=== PATIENT | male | born 1950 ===

== ENCOUNTER 2017-08-24 11:34 | Inpatient (IN) | payer BC ==
[~2017-08-24 11:34] MED LIST: Lidocaine 1%/Sod Bicarbonate in NS 8.4% 1 ML Syringe IV ONE; Morphine 8 MG, EPINEPHrine 0.3 MG, Cefuroxime 750 MG, Ketorolac 30 MG, Sodium Chloride ... ONE; Sodium Chloride 0.9% 10 ML Syringe FLUSH PRN
[2017-08-24] MEDS: Lactated Ringers 1,000 ML IV SCH ×2 (11:45→18:40)
[2017-08-24] MEDS ORDERED: Triamcinolone Acetonide 40 MG/ML 1 ML MDV ONE (12:08)
[2017-08-24] MEDS ORDERED: ceFAZolin 1 GM Vial ONE ×2 (12:08→13:21)
[2017-08-24] MEDS ORDERED: Iodine/Sodium Iodide 2% Tincture 30 ML Bottle ONE (12:08)
[2017-08-24] MEDS ORDERED: Vancomycin 1 GM SDV ONE (12:08)
[2017-08-24] MEDS ORDERED: Bupivacaine 0.25% 30 ML SDV ONE ×2 (12:08→12:19)
[2017-08-24] MEDS ORDERED: Morphine 8 MG, EPINEPHrine 0.3 MG, Cefuroxime 750 MG, Ketorolac 30 MG, Sodium Chloride ... ONE ×5 (12:30)
--- NOTE | 2017-08-24 12:48 | PCM.PREANE ---
Preanesthetic Assessment - Procedure Proposed Procedure: R TKR with l;eft knee cortisone injection - Anesthesia/Transfusion/Family Hx Anesthesia History: No Prior Anesthesia Family History of Anesthesia Reaction: No Transfusion History: No Prior Transfusion(s) - Review of Systems General: No Symptoms Pulmonary: No Symptoms Cardiovascular: Other (HTN, HLD) Gastrointestinal: No Symptoms Neurological: No Symptoms Other: Reports: None - Physical Assessment NPO Status Date: 08/23/17 NPO Status Time: 19:00 O2 Sat by Pulse Oximetry: 99 Respiratory Rate: 16 Vital Signs: Last Vital Signs Temp 37.0 C 08/24/17 11:35 Pulse 62 08/24/17 11:35 Resp 16 08/24/17 11:35 BP 176/95 H 08/24/17 11:35 Pulse Ox 99 08/24/17 11:35 Height: 1.77 m Weight: 81.193 kg ASA Class: 2 Mental Status: Alert & Oriented x3 Airway Class: Mallampati = 3 Dentition: Reports: Normal Dentition Thyro-Mental Finger Breadths: 3 Mouth Opening Finger Breadths: 3 ROM/Head Extension: Full Lungs: Clear to Auscultation, Normal Respiratory Effort Cardiovascular: Regular Rate, Regular Rhythm - Allergies Allergies/Adverse Reactions: Allergies Allergy/AdvReac Type Severity Reaction Status Date / Time No Known Allergies Allergy Verified 08/23/17 15:00 - Blood Blood Available: No Product(s) Available: None - Anesthesia Plan Pre-Op Medication Ordered: None - Acknowledgements Anesthesia Type Planned: Spinal (with duramorph ) Pt an Appropriate Candidate for the Planned Anesthesia: Yes Alternatives and Risks of Anesthesia Discussed w Pt/Guardian: Yes Pt/Guardian Understands and Agrees with Anesthesia Plan: Yes PreAnesthesia Questionnaire HEENT History: Reports: Sinusitis, Other (See Below) Other HEENT History: wears glasses Cardiovascular History: Reports: High Cholesterol, Hypertension Respiratory History: Reports: None Gastrointestinal History: Reports: None Genitourinary History: Reports: None MEDICINE AIDE History: Reports: None Musculoskeletal History: Reports: Arthritis, Osteoarthritis, Other (See Below) Other Musculoskeletal History: bilateral knee pain, intercostal muscle pain, olecranon bursitis Neurological History: Reports: None Psychiatric History: Reports: None Endocrine/Metabolic History: Reports: None Hematologic History: Reports: None Immunologic History: Reports: None Oncologic (Cancer) History: Reports: None Dermatologic History: Reports: None - Past Surgical History Head Surgeries/Procedures: Reports: None HEENT Surgical History: Reports: Cataract Surgery Cardiovascular Surgical History: Reports: None Respiratory Surgical History: Reports: None GI Surgical History: Reports: None Female Surgical History: Reports: None Endocrine Surgical History: Reports: None Neurological Surgical History: Reports: None Oncologic Surgical History: Reports: None Dermatological Surgical History: Reports: None - SUBSTANCE USE Smoking Status *Q: Never Smoker Tobacco Use Within Last Twelve Months: Snuff/Dip Second Hand Smoke Exposure: No Days Per Week of Alcohol Use: 3 Number of Drinks Per Day: 1 Total Drinks Per Week: 3 Recreational Drug Use History: No - HOME MEDS Home Medications: Home Meds Rosuvastatin [Crestor] 10 mg PO DAILY 05/25/16 [History] Lisinopril 20 mg PO DAILY 08/23/17 [History] - CURRENT (IN HOUSE) MEDS Current Meds: Current Medications Lactated Ringer's (Ringers, Lactated) 1,000 mls @ 125 mls/hr IV ASDIRECTED OMAR Last Admin: 08/24/17 11:45 Dose: 125 mls/hr Sodium Chloride (Saline Flush) 10 ml FLUSH ASDIRECTED PRN PRN Reason: Keep Vein Open Discontinued Medications Bupivacaine HCl (Marcaine 0.25%) Confirm Administered Dose 30 ml .ROUTE .STK- MED ONE Stop: 08/24/17 12:09 Bupivacaine HCl (Marcaine 0.25%) Confirm Administered Dose 30 ml .ROUTE .STK- MED ONE Stop: 08/24/17 12:20 Cefazolin Sodium (Ancef) Confirm Administered Dose 2 gm .ROUTE .STK-MED ONE Stop: 08/24/17 12:09 Morphine Sulfate 8 mg/Epinephrine HCl 0.3 mg/Cefuroxime Sodium 750 mg/Ketorolac Tromethamine 30 mg/Sodium Chloride 27.9 ml 0 mg .XX ONETIME ONE Stop: 08/24/17 07:33 Morphine Sulfate 8 mg/Epinephrine HCl 0.3 mg/Cefuroxime Sodium 750 mg/Ketorolac Tromethamine 30 mg/Sodium Chloride 27.9 ml 0 mg .XX ONETIME ONE Stop: 08/24/17 12:31 Iodine (Iodine 2% Mild Tincture) Confirm Administered Dose 30 ml .ROUTE .STK- MED ONE Stop: 08/24/17 12:09 Lidocaine/Sodium Bicarbonate (Buffered Lidocaine 1% In Ns 8.4%) 0.25 ml IV ONETIME ONE Stop: 08/24/17 10:57 Last Admin: 08/24/17 11:44 Dose: 0.25 ml Midazolam HCl (Versed 1 Mg/Ml) Confirm Administered Dose 2 mg .ROUTE .STK-MED ONE Stop: 08/24/17 12:52 Morphine Sulfate (Duramorph Pf) Confirm Administered Dose 10 mg .ROUTE .STK-MED ONE Stop: 08/24/17 12:52 Propofol (Diprivan 20 Ml) Confirm Administered Dose 600 mg .ROUTE .STK-MED ONE Stop: 08/24/17 12:51 Tranexamic Acid (Cyklokapron) Confirm Administered Dose 1,000 mg .ROUTE .STK- MED ONE Stop: 08/24/17 12:09 Triamcinolone Acetonide (Kenalog-40) Confirm Administered Dose 80 mg .ROUTE .STK -MED ONE Stop: 08/24/17 12:09 Vancomycin HCl (Vancomycin) Confirm Administered Dose 1 gm .ROUTE .STK-MED ONE Stop: 08/24/17 12:09
[2017-08-24] MEDS ORDERED: Propofol 200 MG/20 ML SDV ONE ×5 (12:50→14:54)
[2017-08-24] MEDS ORDERED: Midazolam 1 MG/ML 2 ML SDV ONE (12:51)
[2017-08-24] MEDS ORDERED: Morphine PF 10 MG/10 ML SDV ONE (12:51)
[2017-08-24] MEDS ORDERED: Magnesium Hydroxide 400 MG/5 ML Susp 30 ML Cup PO PRN (13:06)
[2017-08-24] MEDS ORDERED: diphenhydrAMINE 50 MG/ML SDV IVPUSH PRN ×2 (13:06→14:08)
[2017-08-24] MEDS ORDERED: Morphine 2 MG/ML Syringe IVPUSH PRN (13:06)
[2017-08-24] MEDS ORDERED: Sennosides 8.6 MG Tab PO PRN (13:06)
[2017-08-24] MEDS ORDERED: Naloxone 0.4 MG/ML SDV IVPUSH PRN (13:06)
[2017-08-24] MEDS ORDERED: Ondansetron 4 MG/2 ML SDV IVPUSH PRN ×2 (13:06→14:08)
[2017-08-24] MEDS ORDERED: Bisacodyl 5 MG Tab PO PRN (13:06)
[2017-08-24] MEDS ORDERED: fentaNYL 100 MCG/2 ML SDV ONE (14:08)
[2017-08-24] MEDS ORDERED: Meperidine PF 50 MG/ML Syringe IVPUSH PRN (14:08)
--- NOTE | 2017-08-24 14:10 | PCM.CONS ---
H&P History of Present Illness - General Date of Service: 08/24/17 Admit Problem/Dx: Admission Diagnosis/Problem Admission Diagnosis/Problem Osteoarthritis of knee Source of Information: Patient, Old Records, Provider, RN Notes Reviewed History Limitations: Reports: Physical Impairment - History of Present Illness Initial Comments - Free Text/Narative: This is a 66-year-old, white male, with past medical history of HTN and HLD who underwent right total knee arthroplasty with left knee cortisone injection post operative day zero. Patient is doing relatively well. He is currently hypertensive. His pain is controlled. He denies any acute issues. Hospital Medicine was consulted for postoperative care. - Related Data Allergies/Adverse Reactions: Allergies Allergy/AdvReac Type Severity Reaction Status Date / Time No Known Allergies Allergy Verified 08/24/17 12:43 Home Medications: Home Meds Rosuvastatin [Crestor] 10 mg PO DAILY 05/25/16 [History] Lisinopril 20 mg PO DAILY 08/23/17 [History] Acetaminophen [Tylenol Extra Strength] 1,000 mg PO Q6HR PRN 08/24/17 [History] Past Medical History HEENT History: Reports: Sinusitis, Other (See Below) Other HEENT History: wears glasses Cardiovascular History: Reports: High Cholesterol, Hypertension Respiratory History: Reports: None Gastrointestinal History: Reports: None Genitourinary History: Reports: None STEPDOWN NURSE History: Reports: None Musculoskeletal History: Reports: Arthritis, Osteoarthritis, Other (See Below) Other Musculoskeletal History: bilateral knee pain, intercostal muscle pain, olecranon bursitis Neurological History: Reports: None Psychiatric History: Reports: None Endocrine/Metabolic History: Reports: None Hematologic History: Reports: None Immunologic History: Reports: None Oncologic (Cancer) History: Reports: None Dermatologic History: Reports: None - Past Surgical History Head Surgeries/Procedures: Reports: None HEENT Surgical History: Reports: Cataract Surgery Cardiovascular Surgical History: Reports: None Respiratory Surgical History: Reports: None GI Surgical History: Reports: None Female Surgical History: Reports: None Endocrine Surgical History: Reports: None Neurological Surgical History: Reports: None Oncologic Surgical History: Reports: None Dermatological Surgical History: Reports: None Social & Family History - Tobacco Use Smoking Status *Q: Never Smoker Years of Tobacco use: 10 Packs/Tins Daily: 0.1 Second Hand Smoke Exposure: No - Caffeine Use Caffeine Use: Reports: Coffee - Alcohol Use Days Per Week of Alcohol Use: 3 Number of Drinks Per Day: 1 Total Drinks Per Week: 3 - Recreational Drug Use Recreational Drug Use: No - Living Situation & Occupation Living situation: Reports: Occupation: Employed H&P Review of Systems - Review of Systems: Review Of Systems: See Below Exam - Exam Exam: See Below - Vital Signs Vital Signs: Last Vital Signs Temp 37.0 C 08/24/17 12:36 Pulse 62 08/24/17 12:36 Resp 16 08/24/17 12:48 BP 176/95 H 08/24/17 12:36 Pulse Ox 99 08/24/17 12:48 Weight: 81.193 kg - Exam General: Alert, Oriented, Cooperative. No: Mild Distress HEENT: Conjunctiva Clear, EACs Clear, Hearing Intact, Mucosa Moist & [place], Nares Patent, Normal Nasal Septum, Pupils Equal, Pupils Reactive Neck: Supple, Trachea Midline, Full Range of Motion. No: JVD Lungs: Clear to Auscultation, Normal Respiratory Effort Cardiovascular: Regular Rate, Regular Rhythm GI/Abdominal Exam: Normal Bowel Sounds, Soft, Non-Tender, No Organomegaly (Male) Exam: Other (indwelling dugan catheter) Rectal (Males) Exam: Deferred Back Exam: Normal Inspection Extremities: Normal Inspection, Normal Range of Motion, Non-Tender, Normal Capillary Refill Peripheral Pulses: 2+: Dorsalis Pedis (L), Dorsalis Pedis (R) Skin: Warm, Dry, Intact Neuro Extensive - Mental Status: Oriented x3, Normal Cognition, Memory Intact Neuro Extensive - Motor, Sensory, Reflexes: CN II-XII Intact (limited but grossly intact), Abnormal Gait Psychiatric: Alert, Normal Affect, Normal Mood Consult PN Assessment/Plan POD#: 0 Procedures: Procedures ASSAY GLUCOSE BLOOD QUANT (08/14/15) ASSAY OF PREALBUMIN (07/10/17) ASSAY OF SERUM ALBUMIN (07/10/17) CHEST X-RAY 2VW FRONTAL&LATL (07/10/17) COMPREHEN METABOLIC PANEL (08/18/16) DXA BONE DENSITY AXIAL (07/15/17) EMERGENCY DEPT VISIT (05/25/16) GLYCOSYLATED HEMOGLOBIN TEST (07/10/17) LIPID PANEL (08/20/16) METABOLIC PANEL TOTAL CA (07/10/17) MR-STAPH DNA AMP PROBE (07/08/17) PROTHROMBIN TIME (07/10/17) THROMBOPLASTIN TIME PARTIAL (07/10/17) X-RAY EXAM KNEE 4 OR MORE (04/20/17) X-RAY EXAM OF SHOULDER (05/25/16) Problem List Initiated/Reviewed/Updated: Yes Plan: Acute: Post-Operative Care State - He is hypertensive - Continue to monitor for hemodynamic instability S/p Right Total Knee Arthroplasty with Left Knee Steroid Injection - Stable - DVT and Pain Management as per primary team Hx/o B/L Chronic Knee Pain - Pain Management as per primary team Post-Operative HTN - Last BP was 165/120 mmHg - Saline lock and Bumex 0.5 mg IVP and HCTZ 12.5 mg po x1 now - PRN anti-hypertensive drug Chronic: HTN HLD Plan: He is clinically stable Routine AM labs Continue home meds PT/OT consult IS q2 awake Thank you for the opportunity to participate in the management of this patient. Requesting Provider: Dr. Rodriguez Date Consult Requested: 08/24/17 Reason for Consult: Post-Operative Care Patient History Reviewed: Yes Admission H&P Reviewed: Yes Consult Result/Summary: Stable
[2017-08-24] MEDS ORDERED: Lactated Ringers 1,000 ML ONE (14:35)
[2017-08-24] MEDS ORDERED: ePHEDrine 50 MG/ML SDV ONE (14:56)
[2017-08-24] MEDS ORDERED: Ketorolac 15 MG/ML SDV IVPUSH PRN (15:27)
[2017-08-24] MEDS ORDERED: Ondansetron 4 MG/2 ML SDV ONE (15:31)
--- NOTE | 2017-08-24 15:32 | PCM.POSTAN ---
POST ANESTHESIA ASSESSMENT - MENTAL STATUS Mental Status: Alert, Oriented - VITAL SIGNS Pulse Rate: 88 SaO2: 100 Resp Rate: 16 Blood Pressure: 123/75 Temperature: 36.2 C - RESPIRATORY Respiratory Status: Respiratory Rate WNL, Airway Patent, O2 Saturation Stable, Supplemental Oxygen - CARDIOVASCULAR CV Status: Pulse Rate WNL, Blood Pressure Stable - GASTROINTESTINAL GI Status: No Symptoms - PAIN Pain Score: 0 - POST OP HYDRATION Hydration Status: Adequate & Stable
--- NOTE | 2017-08-24 16:00 | CR ---
Right knee: 2 views of the right knee were obtained. Comparison: Previous right knee exam of 04/20/17. Recently placed right knee prosthesis is seen. Air noted within the soft tissues and within the joint which is compatible with surgical change. Underlying bony structures are intact. Prosthesis components are aligned. Impression: 1. Satisfactory radiographic appearance of recently placed right knee prosthesis. Diagnostic code #2
[2017-08-24] MEDS: Acetaminophen/oxyCODONE 325-5 MG Tab PO PRN (19:22)
[2017-08-24] MEDS: ceFAZolin 2 GM in Premix Bag 1 BAG IV SCH (20:55)
[2017-08-24] MEDS: Docusate Sodium 100 MG Cap PO SCH (20:58)
[2017-08-24] MEDS: Famotidine 20 MG Tab PO SCH (20:58)
--- NOTE | 2017-08-24 21:41 | PCM.OPNOTE ---
- General Post-Op/Procedure Note Date of Surgery/Procedure: 08/24/17 Operative Procedure(s): right total knee arthroplasty with left corticosteroid injection Pre Op Diagnosis: right knee osteoarthrosis, left knee osteoarthrosis Post-Op Diagnosis: Same Anesthesia Technique: Local, MAC, Spinal Primary Surgeon: Alan Rodriguez Anesthesia Provider: Lopez Sandra Tire Manager: Ericka Hdz Tire Manager: Lawanda Shaw EBL in mLs: 100 Complications: None Condition: Good Free Text/Narrative:: Intake & Output 08/24/17 08/24/17 08/24/17 06:59 14:59 22:59 Intake Total 640 Output Total 400 Balance 240
[2017-08-24] MEDS ORDERED: hydrALAZINE 20 MG/ML SDV IVPUSH PRN (21:43)
[2017-08-24] MEDS ORDERED: Metoprolol Tartrate 5 MG/5 ML SDV IVPUSH PRN (21:43)
[2017-08-24] MEDS ORDERED: Bumetanide 1 MG/4 ML MDV IVPUSH ONE (21:43)
[2017-08-24] MEDS ORDERED: Hydrochlorothiazide 25 MG Tab PO ONE ×2 (21:45)
--- NOTE | 2017-08-24 22:35 | OR ---
DATE OF OPERATION: 08/24/2017 SURGEON: Alan Rodriguez MD OPERATION PERFORMED: 1. Right total knee arthroplasty. 2. Left knee corticosteroid injection. PREOPERATIVE DIAGNOSIS: Bilateral knee osteoarthrosis. POSTOPERATIVE DIAGNOSIS: Bilateral knee osteoarthrosis. ANESTHESIA: Local MAC with spinal. ANESTHESIA PROVIDER: Lopez Sandra. ACUPRESSURE THERAPIST: 1. Ericka Hdz PA-C. 2. Lawanda Shaw LPN. ESTIMATED BLOOD LOSS: 500 mL. COMPLICATIONS: None. CONDITION: Stable. IMPLANT: 1. Brad size 6 PS femur. 2. Brad size 6 universal tibial baseplate. 3. Brad size 6, 11 mm PS X3 polyethylene. 4. [place] 32 x 10 mm asymmetric patella. DESCRIPTION OF PROCEDURE: The patient was identified in the preop holding area. Proper site was marked and identified by the surgeon. The patient was taken back to the operating theater. After adequate anesthesia, the patient's right lower extremity had a nonsterile tourniquet applied and it was then sterilely prepped and draped in the usual sterile fashion. OR timeout was performed. The patient received 2 g IV Ancef. At this time, right lower extremity was exsanguinated. Tourniquet was insufflated to 300 mmHg. Standard medial parapatellar incision was made. Medial parapatellar arthrotomy was created. Deep fibers of the MCL were raised and anterior fat pad was resected. At this time, attention was turned to the patella. Patella measured 24, it was resected to a 14 for a 32 x 10 mm patella. Drill holes were then drilled and found to be in adequate position. The drill was then drilled in the distal femur and the intramedullary distal femoral cutting guide was then placed. The patient was noted to have a large defect in the lateral femoral condyle which was well circumscribed and roughly a depth of 8 mm. 10 mm was resected off the distal femur. Sizing guide was placed. It was found to be a size 6 PS femur that was shown on the implant record at the beginning of this dictation. The drill holes were drilled for the epicondylar axis using [place] line and epicondyles as reference. At this time, the 4-in- 1 cutting block was placed. An anterior posterior and anterior and posterior chamfer cuts were then completed. The correct size box cut was then placed and the box cut was completed and found to be an adequate resection. Attention was turned to the tibia. The posterior medial lateral retractors were placed. The extramedullary tibial guide was placed. It was placed in the old footprint of the ACL. It was aligned with the center of the ankle and 0 degrees of slope, 9 mm was then resected off the unaffected lateral side. There was found to be an acceptable reduction. At this time, posterior osteophytes were removed along with medial and lateral meniscus. A trial implant was placed with a correct sized tibia that was mentioned at the beginning of the dictation. An 11 mm PS X3 polyethylene was then placed. The patient's knee was brought through range of motion. The patella was tracking centrally and was stable to varus and valgus stress. Alignment was found to be roughly at 0 degrees. At this time, cement was mixed on the back table. The tibia was stamped and drilled in proper rotation. All cut surfaces were irrigated with pulse lavage irrigation with Ancef and then completely dried. Once this was completed, then the cement was ready. The universal tibial base plate was cemented in place. Next, the size 6 PS femur cemented into place and the 11 mm trial spacer was placed and then an 11 mm PS X3 polyethylene was placed. The patient's knee was brought into full extension. Excess cement was removed. The patella was then cemented in place at this time. Tourniquet was deflated. One liter dilute Betadine solution was irrigated through the knee along with 3 L of pulse lavage irrigation with Ancef. Periarticular injection was then completed. The patient's knee was brought through a range of motion. Once the cement had time to set up and it was found to be stable to varus valgus stress, the patella was tracking centrally with full range of motion. At this time, a #2 barbed suture was used for closure of the medial parapatellar arthrotomy. Topical tranexamic acid was placed. 2-0 Vicryl was used subcutaneously, a running 3-0 Monocryl was used subcuticularly. The patient tolerated the procedure well and was sent to the PACU in stable condition. After the procedure, the patient underwent left knee corticosteroid injection under sterile, 2 mL of 40 mg Kenalog and 4 mL of 0.25% Marcaine were injected to the left knee. The patient tolerated that as well. MMODAL /[id number]
[2017-08-25] MEDS: Acetaminophen/oxyCODONE 325-5 MG Tab PO PRN ×3 (01:49→12:36)
[2017-08-25] MEDS: ceFAZolin 2 GM in Premix Bag 1 BAG IV SCH ×2 (05:27→12:36)
[2017-08-25] MEDS: Cyclobenzaprine 10 MG Tab PO PRN ×2 (07:23→14:17)
[2017-08-25] MEDS: Famotidine 20 MG Tab PO SCH (08:47)
[2017-08-25] MEDS: Docusate Sodium 100 MG Cap PO SCH (08:47)
[2017-08-25] MEDS ORDERED: Rosuvastatin 10 MG Tab PO SCH (09:00)
[2017-08-25] MEDS ORDERED: Lisinopril 10 MG Tab PO ONE (09:00)
[2017-08-25] MEDS ORDERED: Aspirin 325 MG Tab.EC PO SCH (09:00)
[2017-08-25] MEDS ORDERED: Lisinopril 20 MG Tab PO SCH (09:00)
--- NOTE | 2017-08-25 11:17 | PCM.CONSN ---
- General Info Date of Service: 08/25/17 Admission Dx/Problem (Free Text): Admission Diagnosis/Problem Admission Diagnosis/Problem Osteoarthritis of knee Functional Status: Reports: Pain Controlled, Tolerating Diet, Ambulating, Urinating, Incentive Spirometry. Denies: New Symptoms - Review of Systems General: Reports: No Symptoms. Denies: Fever HEENT: Reports: No Symptoms Pulmonary: Reports: No Symptoms. Denies: Shortness of Breath, Cough Cardiovascular: Reports: No Symptoms. Denies: Chest Pain, Palpitations, Dyspnea on Exertion Gastrointestinal: Reports: No Symptoms. Denies: Abdominal Pain, Constipation, Diarrhea, Vomiting Genitourinary: Reports: No Symptoms Musculoskeletal: Reports: Leg Pain (Right knee at surgical site.) Skin: Reports: No Symptoms Neurological: Reports: No Symptoms Psychiatric: Reports: No Symptoms Systems Review Comment:: Patient reports that he is doing well. He has no new complaints. He feels he is ready to go home. - Patient Data Vitals - Most Recent: Last Vital Signs Temp 98.2 F 08/25/17 07:40 Pulse 96 08/25/17 07:40 Resp 16 08/25/17 07:40 BP 126/80 08/25/17 08:47 Pulse Ox 95 08/25/17 10:35 Weight - Most Recent: 189 lb 8 oz I&O - Last 24 Hours: Intake & Output 08/24/17 08/25/17 08/25/17 22:59 06:59 14:59 Intake Total 640 925 240 Output Total 400 550 Balance 240 375 240 Lab Results Last 24 Hours: Laboratory Results - last 24 hr 08/24/17 08/25/17 08/25/17 Range/Units 22:07 05:51 05:51 WBC 8.48 (4.23-9.07) K/mm3 RBC 4.64 (4.63-6.08) M/mm3 Hgb 14.3 (13.7-17.5) gm/L Hct 41.0 (40.1-51.0) % MCV 88.4 (79.0-92.2) fl MCH 30.8 (25.7-32.2) pg MCHC 34.9 (32.2-35.5) g/dl RDW Std Deviation 39.8 (35.1-43.9) fL Plt Count 241 (163-337) K/mm3 MPV 9.7 (9.4-12.3) fl Sodium 132 L (136-145) mEq/L Potassium 4.2 (3.5-5.1) mEq/L Chloride 97 L (98-107) mEq/L Carbon Dioxide 24 (21-32) mEq/L Anion Gap 15.2 H (5-15) BUN 18 (7-18) mg/dL Creatinine 1.1 (0.7-1.3) mg/dL Est Cr Clr Drug Dosing 67.84 mL/min Estimated GFR (MDRD) > 60 (>60) mL/min BUN/Creatinine Ratio 16.4 (14-18) Glucose 181 H (80-115) mg/dL POC Glucose 168 H (80-115) mg/dL Calcium 8.7 (8.5-10.1) mg/dL Total Bilirubin 0.8 (0.2-1.0) mg/dL AST 21 (15-37) U/L ALT 28 (16-63) U/L Alkaline Phosphatase 56 (46-116) U/L Total Protein 7.3 (6.4-8.2) g/dl Albumin 3.3 L (3.4-5.0) g/dl Globulin 4.0 gm/dL Albumin/Globulin Ratio 0.8 L (1-2) Med Orders - Current: Current Medications Aspirin (Ecotrin) 325 mg PO BID [facility] Last Admin: 08/25/17 08:47 Dose: 325 mg Bisacodyl (Dulcolax) 5 mg PO DAILY PRN PRN Reason: Constipation Cyclobenzaprine HCl (Flexeril) 10 mg PO TID PRN PRN Reason: Spasms Last Admin: 08/25/17 07:23 Dose: 10 mg Docusate Sodium (Colace) 100 mg PO BID [facility] Last Admin: 08/25/17 08:47 Dose: 100 mg Famotidine (Pepcid) 20 mg PO Q12H [facility] Last Admin: 08/25/17 08:47 Dose: 20 mg Hydralazine HCl (Apresoline) 20 mg IVPUSH Q4H PRN PRN Reason: Hypertension Cefazolin Sodium/Dextrose 2 gm (/ Premix) 50 mls @ 100 mls/hr IV Q8H [facility] Stop: 08/25/17 13:59 Last Admin: 08/25/17 05:27 Dose: 100 mls/hr Ketorolac Tromethamine (Toradol) 15 mg IVPUSH Q6H PRN PRN Reason: Pain Last Admin: 08/25/17 05:30 Dose: 15 mg Lisinopril (Prinivil) 20 mg PO DAILY [facility] Last Admin: 08/25/17 08:47 Dose: 20 mg Magnesium Hydroxide (Milk Of Magnesia) 30 ml PO BID PRN PRN Reason: Constipation Metoprolol Tartrate (Lopressor) 5 mg IVPUSH Q4H PRN PRN Reason: Tachycardia Morphine Sulfate (Morphine) 2 mg IVPUSH Q2H PRN PRN Reason: Breakthrough Pain Naloxone HCl (Narcan) 0.1 mg IVPUSH Q5M PRN PRN Reason: Oversedation Ondansetron HCl (Zofran) 4 mg IVPUSH Q6H PRN PRN Reason: Nausea/Vomiting Oxycodone/Acetaminophen (Percocet 325-5 Mg) 1 - 2 tab PO Q4H PRN PRN Reason: Pain Last Admin: 08/25/17 08:47 Dose: 2 tab Rosuvastatin Calcium (Crestor) 10 mg PO DAILY [facility] Last Admin: 08/25/17 08:47 Dose: 10 mg Senna (Senna) 8.6 mg PO BID PRN PRN Reason: Constipation Sodium Chloride (Saline Flush) 10 ml FLUSH ASDIRECTED PRN PRN Reason: Keep Vein Open Discontinued Medications Bumetanide (Bumex) 0.5 mg IVPUSH ONETIME ONE Stop: 08/24/17 21:44 Last Admin: 08/24/17 22:36 Dose: 0.5 mg Bupivacaine HCl (Marcaine 0.25%) Confirm Administered Dose 30 ml .ROUTE .STK- MED ONE Stop: 08/24/17 12:09 Last Admin: 08/24/17 14:33 Dose: 27 ml Bupivacaine HCl (Marcaine 0.25%) Confirm Administered Dose 30 ml .ROUTE .STK- MED ONE Stop: 08/24/17 12:20 Last Admin: 08/24/17 15:10 Dose: 4 ml Cefazolin Sodium (Ancef) Confirm Administered Dose 2 gm .ROUTE .STK-MED ONE Stop: 08/24/17 12:09 Last Admin: 08/24/17 14:29 Dose: 2 gm Cefazolin Sodium (Ancef) Confirm Administered Dose 2 gm .ROUTE .STK-MED ONE Stop: 08/24/17 13:22 Morphine Sulfate 8 mg/Epinephrine HCl 0.3 mg/Cefuroxime Sodium 750 mg/Ketorolac Tromethamine 30 mg/Sodium Chloride 27.9 ml 0 mg .XX ONETIME ONE Stop: 08/24/17 07:33 Morphine Sulfate 8 mg/Epinephrine HCl 0.3 mg/Cefuroxime Sodium 750 mg/Ketorolac Tromethamine 30 mg/Sodium Chloride 27.9 ml 0 mg .XX ONETIME ONE Stop: 08/24/17 12:31 Last Admin: 08/24/17 14:32 Dose: 788.3 mg Diphenhydramine HCl (Benadryl) 25 mg IVPUSH Q4H PRN PRN Reason: Nausea Diphenhydramine HCl (Benadryl) 25 mg IVPUSH Q6H PRN PRN Reason: Pruritis Stop: 08/24/17 23:00 Ephedrine Sulfate (Ephedrine Sulfate) Confirm Administered Dose 50 mg .ROUTE .STK-MED ONE Stop: 08/24/17 14:57 Fentanyl (Sublimaze) Confirm Administered Dose 100 mcg .ROUTE .STK-MED ONE Stop: 08/24/17 14:09 Hydrochlorothiazide (Hydrochlorothiazide) 25 mg PO ONETIME ONE Stop: 08/24/17 21:46 Last Admin: 08/24/17 22:30 Dose: Not Given Hydrochlorothiazide (Hydrochlorothiazide) 12.5 mg PO ONETIME ONE Stop: 08/24/17 21:46 Last Admin: 08/24/17 22:35 Dose: 12.5 mg Lactated Ringer's (Ringers, Lactated) 1,000 mls @ 125 mls/hr IV ASDIRECTED [facility] Last Admin: 08/24/17 18:40 Dose: 125 mls/hr Lactated Ringer's (Ringers, Lactated) Confirm Administered Dose 1,000 mls @ as directed .ROUTE .STK-MED ONE Stop: 08/24/17 14:36 Iodine (Iodine 2% Mild Tincture) Confirm Administered Dose 30 ml .ROUTE .STK- MED ONE Stop: 08/24/17 12:09 Last Admin: 08/24/17 14:25 Dose: 18 ml Lidocaine/Sodium Bicarbonate (Buffered Lidocaine 1% In Ns 8.4%) 0.25 ml IV ONETIME ONE Stop: 08/24/17 10:57 Last Admin: 08/24/17 11:44 Dose: 0.25 ml Lisinopril (Prinivil) 10 mg PO ONETIME ONE Stop: 08/25/17 09:01 Last Admin: 08/25/17 08:46 Dose: 10 mg Meperidine HCl (Demerol) 12.5 mg IVPUSH ONETIME PRN PRN Reason: Shivering Stop: 08/24/17 23:00 Midazolam HCl (Versed 1 Mg/Ml) Confirm Administered Dose 2 mg .ROUTE .STK-MED ONE Stop: 08/24/17 12:52 Morphine Sulfate (Duramorph Pf) Confirm Administered Dose 10 mg .ROUTE .STK-MED ONE Stop: 08/24/17 12:52 Ondansetron HCl (Zofran) 4 mg IVPUSH ONETIME PRN PRN Reason: Nausea/Vomiting Stop: 08/24/17 23:00 Ondansetron HCl (Zofran) Confirm Administered Dose 4 mg .ROUTE .STK-MED ONE Stop: 08/24/17 15:32 Propofol (Diprivan 20 Ml) Confirm Administered Dose 600 mg .ROUTE .STK-MED ONE Stop: 08/24/17 12:51 Propofol (Diprivan 20 Ml) Confirm Administered Dose 200 mg .ROUTE .STK-MED ONE Stop: 08/24/17 14:05 Propofol (Diprivan 20 Ml) Confirm Administered Dose 200 mg .ROUTE .STK-MED ONE Stop: 08/24/17 14:06 Propofol (Diprivan 20 Ml) Confirm Administered Dose 200 mg .ROUTE .STK-MED ONE Stop: 08/24/17 14:37 Propofol (Diprivan 20 Ml) Confirm Administered Dose 200 mg .ROUTE .STK-MED ONE Stop: 08/24/17 14:55 Tranexamic Acid (Cyklokapron) Confirm Administered Dose 1,000 mg .ROUTE .STK- MED ONE Stop: 08/24/17 12:09 Last Admin: 08/24/17 14:43 Dose: 1,000 mg Triamcinolone Acetonide (Kenalog-40) Confirm Administered Dose 80 mg .ROUTE .STK -MED ONE Stop: 08/24/17 12:09 Last Admin: 08/24/17 15:10 Dose: 80 mg Vancomycin HCl (Vancomycin) Confirm Administered Dose 1 gm .ROUTE .[place]-MED ONE Stop: 08/24/17 12:09 Last Admin: 08/24/17 14:44 Dose: 1 gm - Exam Quality Assessment: DVT Prophylaxis General: Alert, Oriented, Cooperative HEENT: Pupils Equal, Pupils Reactive, Mucous Membr. Moist/[place] Neck: Supple, Trachea Midline, No JVD Lungs: Clear to Auscultation, Normal Respiratory Effort Cardiovascular: Regular Rate, Regular Rhythm GI/Abdominal Exam: Normal Bowel Sounds, Soft, Non-Tender, No Organomegaly, No Distention, No Mass (Male) Exam: Deferred Back Exam: Normal Inspection, Full Range of Motion Extremities: Leg Pain (left knee at surgical site, controlled. ), Limited Range of Motion. No: Pedal Edema Peripheral Pulses: 2+: Radial (L), Radial (R), Posterior Tibial (L), Posterior Tibial (R), Dorsalis Pedis (L), Dorsalis Pedis (R) Skin: Warm, Dry, Intact Wound/Incisions: Dressing Dry and Intact, No Drainage Neurological: Normal Speech, Normal Tone, Sensation Intact. No: Normal Gait Psy/Mental Status: Alert, Normal Affect, Normal Mood Consult PN Assessment/Plan POD#: 1 Procedures: Procedures ASSAY GLUCOSE BLOOD QUANT (08/14/15) ASSAY OF PREALBUMIN (07/10/17) ASSAY OF SERUM ALBUMIN (07/10/17) CHEST X-RAY 2VW FRONTAL&LATL (07/10/17) COMPREHEN METABOLIC PANEL (08/18/16) DXA BONE DENSITY AXIAL (07/15/17) EMERGENCY DEPT VISIT (05/25/16) GLYCOSYLATED HEMOGLOBIN TEST (07/10/17) LIPID PANEL (08/20/16) METABOLIC PANEL TOTAL CA (07/10/17) MR-STAPH DNA AMP PROBE (07/08/17) PROTHROMBIN TIME (07/10/17) THROMBOPLASTIN TIME PARTIAL (07/10/17) X-RAY EXAM KNEE 4 OR MORE (04/20/17) X-RAY EXAM OF SHOULDER (05/25/16) (1) Status post right knee replacement SNOMED Code(s): 991721438, 625089025, 749750905 Code(s): Z96.651 - PRESENCE OF RIGHT ARTIFICIAL KNEE JOINT Priority: High Current Visit: Yes Problem List Initiated/Reviewed/Updated: Yes Plan: Acute: Post-Operative Care State - He is hypertensive - Continue to monitor for hemodynamic instability S/p Right Total Knee Arthroplasty with Left Knee Steroid Injection - Stable - DVT and Pain Management as per primary team Hx/o B/L Chronic Knee Pain - Pain Management as per primary team Post-Operative HTN - AM BP was 144/89 - 10mg Lisinopril given this AM - Follow-up with PCP for monitoring/medication adjustment of hypertension - PRN anti-hypertensive drug Chronic: HTN HLD Plan: He is clinically stable Routine AM labs Continue home meds PT/OT consult IS q2 awake Plan on discharge today. Thank you for the opportunity to participate in the management of this patient. From a hospitalist standpoint this patient is clear for discharge. Thank you!
[2017-08-25 12:36] VITALS: BP 104/62
--- NOTE | 2017-08-25 13:07 | PCM.SURGPN ---
- General Info Date of Service: 08/25/17 POD#: 1 Functional Status: Reports: Pain Controlled, Tolerating Diet, Ambulating, Urinating, Incentive Spirometry - Review of Systems Musculoskeletal: Reports: Other (The pt met inpatient therapy goals. He reports less discomfort at left knee today s/p injection.) - Patient Data Vitals - Most Recent: Last Vital Signs Temp 98.4 F 08/25/17 12:26 Pulse 94 08/25/17 12:26 Resp 14 08/25/17 12:26 BP 104/62 08/25/17 12:26 Pulse Ox 96 08/25/17 12:26 Weight - Most Recent: 189 lb 8 oz I&O - Last 24 Hours: Intake & Output 08/24/17 08/25/17 08/25/17 22:59 06:59 14:59 Intake Total 640 925 240 Output Total 400 550 Balance 240 375 240 Lab Results Last 24 Hrs: Laboratory Results - last 24 hr 08/24/17 08/25/17 08/25/17 Range/Units 22:07 05:51 05:51 WBC 8.48 (4.23-9.07) K/mm3 RBC 4.64 (4.63-6.08) M/mm3 Hgb 14.3 (13.7-17.5) gm/L Hct 41.0 (40.1-51.0) % MCV 88.4 (79.0-92.2) fl MCH 30.8 (25.7-32.2) pg MCHC 34.9 (32.2-35.5) g/dl RDW Std Deviation 39.8 (35.1-43.9) fL Plt Count 241 (163-337) K/mm3 MPV 9.7 (9.4-12.3) fl Sodium 132 L (136-145) mEq/L Potassium 4.2 (3.5-5.1) mEq/L Chloride 97 L (98-107) mEq/L Carbon Dioxide 24 (21-32) mEq/L Anion Gap 15.2 H (5-15) BUN 18 (7-18) mg/dL Creatinine 1.1 (0.7-1.3) mg/dL Est Cr Clr Drug Dosing 67.84 mL/min Estimated GFR (MDRD) > 60 (>60) mL/min BUN/Creatinine Ratio 16.4 (14-18) Glucose 181 H (80-115) mg/dL POC Glucose 168 H (80-115) mg/dL Calcium 8.7 (8.5-10.1) mg/dL Total Bilirubin 0.8 (0.2-1.0) mg/dL AST 21 (15-37) U/L ALT 28 (16-63) U/L Alkaline Phosphatase 56 (46-116) U/L Total Protein 7.3 (6.4-8.2) g/dl Albumin 3.3 L (3.4-5.0) g/dl Globulin 4.0 gm/dL Albumin/Globulin Ratio 0.8 L (1-2) Med Orders - Current: Current Medications Aspirin (Ecotrin) 325 mg PO BID [facility] Last Admin: 08/25/17 08:47 Dose: 325 mg Bisacodyl (Dulcolax) 5 mg PO DAILY PRN PRN Reason: Constipation Cyclobenzaprine HCl (Flexeril) 10 mg PO TID PRN PRN Reason: Spasms Last Admin: 08/25/17 07:23 Dose: 10 mg Docusate Sodium (Colace) 100 mg PO BID [facility] Last Admin: 08/25/17 08:47 Dose: 100 mg Famotidine (Pepcid) 20 mg PO Q12H [facility] Last Admin: 08/25/17 08:47 Dose: 20 mg Hydralazine HCl (Apresoline) 20 mg IVPUSH Q4H PRN PRN Reason: Hypertension Cefazolin Sodium/Dextrose 2 gm (/ Premix) 50 mls @ 100 mls/hr IV Q8H [facility] Stop: 08/25/17 13:59 Last Admin: 08/25/17 12:36 Dose: 100 mls/hr Ketorolac Tromethamine (Toradol) 15 mg IVPUSH Q6H PRN PRN Reason: Pain Last Admin: 08/25/17 05:30 Dose: 15 mg Lisinopril (Prinivil) 20 mg PO DAILY [facility] Last Admin: 08/25/17 08:47 Dose: 20 mg Magnesium Hydroxide (Milk Of Magnesia) 30 ml PO BID PRN PRN Reason: Constipation Metoprolol Tartrate (Lopressor) 5 mg IVPUSH Q4H PRN PRN Reason: Tachycardia Morphine Sulfate (Morphine) 2 mg IVPUSH Q2H PRN PRN Reason: Breakthrough Pain Naloxone HCl (Narcan) 0.1 mg IVPUSH Q5M PRN PRN Reason: Oversedation Ondansetron HCl (Zofran) 4 mg IVPUSH Q6H PRN PRN Reason: Nausea/Vomiting Oxycodone/Acetaminophen (Percocet 325-5 Mg) 1 - 2 tab PO Q4H PRN PRN Reason: Pain Last Admin: 08/25/17 12:36 Dose: 2 tab Rosuvastatin Calcium (Crestor) 10 mg PO DAILY [facility] Last Admin: 08/25/17 08:47 Dose: 10 mg Senna (Senna) 8.6 mg PO BID PRN PRN Reason: Constipation Sodium Chloride (Saline Flush) 10 ml FLUSH ASDIRECTED PRN PRN Reason: Keep Vein Open Discontinued Medications Bumetanide (Bumex) 0.5 mg IVPUSH ONETIME ONE Stop: 08/24/17 21:44 Last Admin: 08/24/17 22:36 Dose: 0.5 mg Bupivacaine HCl (Marcaine 0.25%) Confirm Administered Dose 30 ml .ROUTE .STK- MED ONE Stop: 08/24/17 12:09 Last Admin: 08/24/17 14:33 Dose: 27 ml Bupivacaine HCl (Marcaine 0.25%) Confirm Administered Dose 30 ml .ROUTE .STK- MED ONE Stop: 08/24/17 12:20 Last Admin: 08/24/17 15:10 Dose: 4 ml Cefazolin Sodium (Ancef) Confirm Administered Dose 2 gm .ROUTE .STK-MED ONE Stop: 08/24/17 12:09 Last Admin: 08/24/17 14:29 Dose: 2 gm Cefazolin Sodium (Ancef) Confirm Administered Dose 2 gm .ROUTE .STK-MED ONE Stop: 08/24/17 13:22 Morphine Sulfate 8 mg/Epinephrine HCl 0.3 mg/Cefuroxime Sodium 750 mg/Ketorolac Tromethamine 30 mg/Sodium Chloride 27.9 ml 0 mg .XX ONETIME ONE Stop: 08/24/17 07:33 Morphine Sulfate 8 mg/Epinephrine HCl 0.3 mg/Cefuroxime Sodium 750 mg/Ketorolac Tromethamine 30 mg/Sodium Chloride 27.9 ml 0 mg .XX ONETIME ONE Stop: 08/24/17 12:31 Last Admin: 08/24/17 14:32 Dose: 788.3 mg Diphenhydramine HCl (Benadryl) 25 mg IVPUSH Q4H PRN PRN Reason: Nausea Diphenhydramine HCl (Benadryl) 25 mg IVPUSH Q6H PRN PRN Reason: Pruritis Stop: 08/24/17 23:00 Ephedrine Sulfate (Ephedrine Sulfate) Confirm Administered Dose 50 mg .ROUTE .STK-MED ONE Stop: 08/24/17 14:57 Fentanyl (Sublimaze) Confirm Administered Dose 100 mcg .ROUTE .STK-MED ONE Stop: 08/24/17 14:09 Hydrochlorothiazide (Hydrochlorothiazide) 25 mg PO ONETIME ONE Stop: 08/24/17 21:46 Last Admin: 08/24/17 22:30 Dose: Not Given Hydrochlorothiazide (Hydrochlorothiazide) 12.5 mg PO ONETIME ONE Stop: 08/24/17 21:46 Last Admin: 08/24/17 22:35 Dose: 12.5 mg Lactated Ringer's (Ringers, Lactated) 1,000 mls @ 125 mls/hr IV ASDIRECTED OMAR Last Admin: 08/24/17 18:40 Dose: 125 mls/hr Lactated Ringer's (Ringers, Lactated) Confirm Administered Dose 1,000 mls @ as directed .ROUTE .STK-MED ONE Stop: 08/24/17 14:36 Iodine (Iodine 2% Mild Tincture) Confirm Administered Dose 30 ml .ROUTE .STK- MED ONE Stop: 08/24/17 12:09 Last Admin: 08/24/17 14:25 Dose: 18 ml Lidocaine/Sodium Bicarbonate (Buffered Lidocaine 1% In Ns 8.4%) 0.25 ml IV ONETIME ONE Stop: 08/24/17 10:57 Last Admin: 08/24/17 11:44 Dose: 0.25 ml Lisinopril (Prinivil) 10 mg PO ONETIME ONE Stop: 08/25/17 09:01 Last Admin: 08/25/17 08:46 Dose: 10 mg Meperidine HCl (Demerol) 12.5 mg IVPUSH ONETIME PRN PRN Reason: Shivering Stop: 08/24/17 23:00 Midazolam HCl (Versed 1 Mg/Ml) Confirm Administered Dose 2 mg .ROUTE .STK-MED ONE Stop: 08/24/17 12:52 Morphine Sulfate (Duramorph Pf) Confirm Administered Dose 10 mg .ROUTE .STK-MED ONE Stop: 08/24/17 12:52 Ondansetron HCl (Zofran) 4 mg IVPUSH ONETIME PRN PRN Reason: Nausea/Vomiting Stop: 08/24/17 23:00 Ondansetron HCl (Zofran) Confirm Administered Dose 4 mg .ROUTE .STK-MED ONE Stop: 08/24/17 15:32 Propofol (Diprivan 20 Ml) Confirm Administered Dose 600 mg .ROUTE .STK-MED ONE Stop: 08/24/17 12:51 Propofol (Diprivan 20 Ml) Confirm Administered Dose 200 mg .ROUTE .STK-MED ONE Stop: 08/24/17 14:05 Propofol (Diprivan 20 Ml) Confirm Administered Dose 200 mg .ROUTE .STK-MED ONE Stop: 08/24/17 14:06 Propofol (Diprivan 20 Ml) Confirm Administered Dose 200 mg .ROUTE .STK-MED ONE Stop: 08/24/17 14:37 Propofol (Diprivan 20 Ml) Confirm Administered Dose 200 mg .ROUTE .STK-MED ONE Stop: 08/24/17 14:55 Tranexamic Acid (Cyklokapron) Confirm Administered Dose 1,000 mg .ROUTE .STK- MED ONE Stop: 08/24/17 12:09 Last Admin: 08/24/17 14:43 Dose: 1,000 mg Triamcinolone Acetonide (Kenalog-40) Confirm Administered Dose 80 mg .ROUTE .STK -MED ONE Stop: 08/24/17 12:09 Last Admin: 08/24/17 15:10 Dose: 80 mg Vancomycin HCl (Vancomycin) Confirm Administered Dose 1 gm .ROUTE .STK-MED ONE Stop: 08/24/17 12:09 Last Admin: 08/24/17 14:44 Dose: 1 gm - Exam Wound/Incisions: Other (Shadowing at Mepilex inferiorly. Area was outlined today.) General: Alert, Cooperative, No Acute Distress Lungs: Normal Respiratory Effort Extremities: Other (NVS intact for BLE. Thomas's negative BLE.) - Problem List Review Problem List Initiated/Reviewed/Updated: Yes - My Orders Last 24 Hours: Active Orders 24 hr Category Date Time Status Patient Status [ADT] Routine ADT 08/24/17 13:06 Active Ambulate [RC] PER UNIT ROUTINE Care 08/24/17 13:06 Active Antiembolic Devices [RC] QSHIFT Care 08/24/17 13:10 Active Communication Order [RC] ASDIRECTED Care 08/24/17 14:08 Active Cooling Warming Measures [RC] ASDIRECTED Care 08/24/17 14:08 Inactive Insert Kate Catheter [Insert Urinary Catheter] [OM.PC] Care 08/24/17 13:00 Ordered Q24H May Shower [RC] ASDIRECTED Care 08/24/17 13:06 Active Notify Provider Consults [RC] ASDIRECTED Care 08/24/17 13:11 Active Notify Provider [RC] ASDIRECTED Care 08/24/17 14:08 Active Pulse Oximetry [RC] ASDIRECTED Care 08/24/17 14:08 Active RT Incentive Spirometry [RC] Q1HWA Care 08/24/17 13:07 Active Ready for Discharge [RC] PER UNIT ROUTINE Care 08/25/17 12:39 Active Up to Chair [RC] ASDIRECTED Care 08/24/17 13:06 Active Urinary Catheter Assessment [RC] ASDIRECTED Care 08/24/17 17:18 Active Urinary Catheter Removal [RC] 2100 Care 08/24/17 13:06 Active VTE/DVT Education [RC] , Care 08/24/17 13:10 Active Vital Signs [RC] Q15M Care 08/24/17 14:08 Inactive Vital Signs [RC] Q1H Care 08/24/17 14:08 Inactive Vital Signs [RC] Q4HR Care 08/24/17 13:06 Active Consult to Case Management [CONS] Routine Cons 08/24/17 13:06 Active Consult to Physician [CONS] Routine Cons 08/24/17 13:06 Active OT Evaluation and Treatment [CONS] Routine Cons 08/24/17 13:06 Active PT Evaluation and Treatment [CONS] Routine Cons 08/24/17 13:10 Active Regular Diet [DIET] Diet 08/24/17 Dinner Active Acetaminophen/oxyCODONE [Percocet 325-5 MG] Med 08/24/17 13:06 Active 1 - 2 tab PO Q4H PRN Aspirin [Ecotrin] Med 08/25/17 09:00 Active 325 mg PO BID Bisacodyl [Dulcolax] Med 08/24/17 13:06 Active 5 mg PO DAILY PRN Cyclobenzaprine [Flexeril] Med 08/24/17 13:06 Active 10 mg PO TID PRN Docusate Sodium [Colace] Med 08/24/17 21:00 Active 100 mg PO BID Famotidine [Pepcid] Med 08/24/17 21:00 Active 20 mg PO Q12H Ketorolac [Toradol] Med 08/24/17 15:27 Active 15 mg IVPUSH Q6H PRN Lisinopril [Prinivil] Med 08/25/17 09:00 Active 20 mg PO DAILY Magnesium Hydroxide [Milk of Magnesia] Med 08/24/17 13:06 Active 30 ml PO BID PRN Metoprolol Tartrate [Lopressor] Med 08/24/17 21:43 Active 5 mg IVPUSH Q4H PRN Morphine Med 08/24/17 13:06 Active 2 mg IVPUSH Q2H PRN Naloxone [Narcan] Med 08/24/17 13:06 Active 0.1 mg IVPUSH Q5M PRN Ondansetron [Zofran] Med 08/24/17 13:06 Active 4 mg IVPUSH Q6H PRN Rosuvastatin [Crestor] Med 08/25/17 09:00 Active 10 mg PO DAILY Sennosides [Senna] Med 08/24/17 13:06 Active 8.6 mg PO BID PRN ceFAZolin [Ancef] 2 gm Med 08/24/17 21:30 Active Premix Bag 1 bag IV Q8H hydrALAZINE [Apresoline] Med 08/24/17 21:43 Active 20 mg IVPUSH Q4H PRN Antiembolic Hose [OM.PC] Per Unit Routine Oth 08/24/17 13:10 Ordered DVT/VTE Prophylaxis Reflex [OM.PC] Routine Oth 08/24/17 13:06 Ordered Ice Therapy [OM.PC] Per Unit Routine Oth 08/24/17 13:08 Ordered Pulse Oximetry Continuous Monitoring [OM.PC] Routine Oth 08/24/17 14:08 Active Sequential Compression Device [OM.PC] Per Unit Routine Oth 08/24/17 13:12 Ordered Resuscitation Status Routine Resus Stat 08/24/17 13:06 Ordered Medication Orders Aspirin (Ecotrin) 325 mg PO BID [facility] Last Admin: 08/25/17 08:47 Dose: 325 mg Bisacodyl (Dulcolax) 5 mg PO DAILY PRN PRN Reason: Constipation Cyclobenzaprine HCl (Flexeril) 10 mg PO TID PRN PRN Reason: Spasms Last Admin: 08/25/17 07:23 Dose: 10 mg Docusate Sodium (Colace) 100 mg PO BID [facility] Last Admin: 08/25/17 08:47 Dose: 100 mg Admin: 08/24/17 20:58 Dose: 100 mg Famotidine (Pepcid) 20 mg PO Q12H [facility] Last Admin: 08/25/17 08:47 Dose: 20 mg Admin: 08/24/17 20:58 Dose: 20 mg Hydralazine HCl (Apresoline) 20 mg IVPUSH Q4H PRN PRN Reason: Hypertension Cefazolin Sodium/Dextrose 2 gm (/ Premix) 50 mls @ 100 mls/hr IV Q8H [facility] Stop: 08/25/17 13:59 Last Admin: 08/25/17 12:36 Dose: 100 mls/hr Infusion: 08/25/17 05:57 Dose: 100 mls/hr Admin: 08/25/17 05:27 Dose: 100 mls/hr Infusion: 08/24/17 21:25 Dose: 100 mls/hr Admin: 08/24/17 20:55 Dose: 100 mls/hr Ketorolac Tromethamine (Toradol) 15 mg IVPUSH Q6H PRN PRN Reason: Pain Last Admin: 08/25/17 05:30 Dose: 15 mg Lisinopril (Prinivil) 20 mg PO DAILY [facility] Last Admin: 08/25/17 08:47 Dose: 20 mg Magnesium Hydroxide (Milk Of Magnesia) 30 ml PO BID PRN PRN Reason: Constipation Metoprolol Tartrate (Lopressor) 5 mg IVPUSH Q4H PRN PRN Reason: Tachycardia Morphine Sulfate (Morphine) 2 mg IVPUSH Q2H PRN PRN Reason: Breakthrough Pain Naloxone HCl (Narcan) 0.1 mg IVPUSH Q5M PRN PRN Reason: Oversedation Ondansetron HCl (Zofran) 4 mg IVPUSH Q6H PRN PRN Reason: Nausea/Vomiting Oxycodone/Acetaminophen (Percocet 325-5 Mg) 1 - 2 tab PO Q4H PRN PRN Reason: Pain Last Admin: 08/25/17 12:36 Dose: 2 tab Admin: 08/25/17 08:47 Dose: 2 tab Admin: 08/25/17 01:49 Dose: 2 tab Admin: 08/24/17 19:22 Dose: 2 tab Rosuvastatin Calcium (Crestor) 10 mg PO DAILY [facility] Last Admin: 08/25/17 08:47 Dose: 10 mg Senna (Senna) 8.6 mg PO BID PRN PRN Reason: Constipation Sodium Chloride (Saline Flush) 10 ml FLUSH ASDIRECTED PRN PRN Reason: Keep Vein Open - Assessment Assessment (Free Text/Narrative):: POD#1 - right TKA with left knee aspiration/injection - Plan Plan (Free Text/Narrative):: 1. Discharge to home today. The pt has met inpatient therapy goals. 2. Hgb 14.3 today. 3. Outpatient therapy. 4. 325mg ASA BID, frequent mobility, TEDs. Dr. Rodriguez evaluated the pt today.
--- NOTE | 2017-08-26 10:01 | PCM.DCSUM1 ---
Discharge Summary - Hospital Course Brief History: José Luis is a 66 yo male who underwent right TKA with left knee cortisone injection with Dr. Rodriguez on 08-24-2017. The procedure was completed under spinal anesthesia with MAC. The pt tolerated the procedure well and was admitted to the Medical-Surgical Unit. Medical management was provided by the Hospitalist service. The pt's Hospital course was uneventful. The pt's Hgb on POD#1 was 14.3. On POD#1, 325mg BID was initiated for VTE prophylaxis. SCDs and TEDs were also ordered. A Mepilex dressing was placed at the incision site at the time of surgery and was monitored. The pt participated in P.T. and O.T. and progressed well. The pt was allowed to WBAT. On POD#1, the pt was deemed appropriate to discharge to home with his . - Discharge Data Discharge Date: 08/25/17 Discharge Disposition: Home, Self-Care 01 Condition: Good - Patient Summary/Data Operative Procedure(s) Performed: right total knee arthroplasty with left corticosteroid injection Consults: Consultations 08/24/17 13:06 Consult to Case Management [CONS] Routine Consult to Physician [CONS] Routine OT Evaluation and Treatment [CONS] Routine 08/24/17 13:10 PT Evaluation and Treatment [CONS] Routine - Patient Instructions Diet: Usual Diet as Tolerated Activity: Apply Ice, As Tolerated, Elevate Extremity, Full Weight Bearing Driving: Do Not Drive Showering/Bathing: May Shower Wound/Incision Care: Keep Operative Site/Wound Site Clean and Dry, Do NOT Change Dressing Notify Provider of: Fever, Increased Pain, Swelling and Redness, Drainage, Nausea and/or Vomiting Other/Special Instructions: Please get up and moving around every hour while awake. This helps to prevent blood clots. Please use your walker and have help as needed. Take a 325mg ASPIRIN TWICE DAILY. This also helps to prevent blood clots. The aspirin is being used for blood clot prevention and not for pain management, so please do not miss a dose of the medication. Do the exercises you were taught in the Hospital. Schedule for P.T. Use the pain medication as needed. The medication may cause drowsiness and constipation. Contact your primary care provider for instructions if you are constipated. You may use a stool softener like docusate sodium or Colace 100mg twice daily and/or a laxative like Miralax daily for constipation. Use the ice machine often. Elevate the limb to decrease swelling. Keep the Mepilex dressing in place until follow-up at the Clinic. Notify the Clinic if the dressing is saturated. Wear the MARIANNA hose during the day and you may remove these at night. Eat a diet high in protein as this well help with healing. Schedule an appointment with your primary care provider for 'routine post-op care'. Call the Clinic with questions or concerns - [phone]. - Discharge Plan Prescriptions/Med Rec: Acetaminophen/oxyCODONE [Percocet 325-5 MG] 1 - 2 tab PO Q6H PRN #60 tablet PRN Reason: Pain Aspirin [Ecotrin] 325 mg PO BID #60 tab.ec Cyclobenzaprine [Flexeril] 10 mg PO TID PRN #40 tablet PRN Reason: Spasms Home Medications: Home Meds Rosuvastatin [Crestor] 10 mg PO DAILY 05/25/16 [History] Lisinopril 20 mg PO DAILY 08/23/17 [History] Acetaminophen/oxyCODONE [Percocet 325-5 MG] 1 - 2 tab PO Q6H PRN #60 tablet [Rx] Aspirin [Ecotrin] 325 mg PO BID #60 tab.ec 08/25/17 [Rx] Bisacodyl [Dulcolax] 5 mg PO DAILY PRN tablet 08/25/17 [Rx] Cyclobenzaprine [Flexeril] 10 mg PO TID PRN #40 tablet 08/25/17 [Rx] Docusate Sodium [Colace] 100 mg PO BID cap 08/25/17 [Rx] Famotidine [Pepcid] 20 mg PO Q12H tablet 08/25/17 [Rx] Magnesium Hydroxide [Milk of Magnesia] 30 ml PO BID PRN cup 08/25/17 [Rx] Sennosides [Senna] 8.6 mg PO BID PRN tablet 08/25/17 [Rx] Patient Handouts: Total Knee Replacement, Care After, [id number], Knee Injection, Total Knee Replacement, [id number], Aspirin, ASA oral tablets, Knee Rehabilitation Guidelines Following Surgery Referrals: Deyanira Crawford NP [Primary Care Provider] - Laumb,Ericka J, PA-C [Physician Copy Chief] - 09/15/17 10:00 am (09/22/17 11:45 Jennifer Appointment ) - Patient Data Vitals - Most Recent: Last Vital Signs Temp 98.4 F 08/25/17 12:26 Pulse 94 08/25/17 12:26 Resp 14 08/25/17 12:26 BP 104/62 08/25/17 12:26 Pulse Ox 96 08/25/17 12:26 Weight - Most Recent: 189 lb 8 oz I&O - Last 24 hours: Intake & Output 08/25/17 08/26/17 08/26/17 22:59 06:59 14:59 Intake Total 600 Output Total 700 Balance -100 Med Orders - Current: Current Medications Discontinued Medications Aspirin (Ecotrin) 325 mg PO BID OMAR Last Admin: 08/25/17 08:47 Dose: 325 mg Bisacodyl (Dulcolax) 5 mg PO DAILY PRN PRN Reason: Constipation Bumetanide (Bumex) 0.5 mg IVPUSH ONETIME ONE Stop: 08/24/17 21:44 Last Admin: 08/24/17 22:36 Dose: 0.5 mg Bupivacaine HCl (Marcaine 0.25%) Confirm Administered Dose 30 ml .ROUTE .STK- MED ONE Stop: 08/24/17 12:09 Last Admin: 08/24/17 14:33 Dose: 27 ml Bupivacaine HCl (Marcaine 0.25%) Confirm Administered Dose 30 ml .ROUTE .STK- MED ONE Stop: 08/24/17 12:20 Last Admin: 08/24/17 15:10 Dose: 4 ml Cefazolin Sodium (Ancef) Confirm Administered Dose 2 gm .ROUTE .STK-MED ONE Stop: 08/24/17 12:09 Last Admin: 08/24/17 14:29 Dose: 2 gm Cefazolin Sodium (Ancef) Confirm Administered Dose 2 gm .ROUTE .STK-MED ONE Stop: 08/24/17 13:22 Morphine Sulfate 8 mg/Epinephrine HCl 0.3 mg/Cefuroxime Sodium 750 mg/Ketorolac Tromethamine 30 mg/Sodium Chloride 27.9 ml 0 mg .XX ONETIME ONE Stop: 08/24/17 07:33 Morphine Sulfate 8 mg/Epinephrine HCl 0.3 mg/Cefuroxime Sodium 750 mg/Ketorolac Tromethamine 30 mg/Sodium Chloride 27.9 ml 0 mg .XX ONETIME ONE Stop: 08/24/17 12:31 Last Admin: 08/24/17 14:32 Dose: 788.3 mg Cyclobenzaprine HCl (Flexeril) 10 mg PO TID PRN PRN Reason: Spasms Last Admin: 08/25/17 14:17 Dose: 10 mg Diphenhydramine HCl (Benadryl) 25 mg IVPUSH Q4H PRN PRN Reason: Nausea Diphenhydramine HCl (Benadryl) 25 mg IVPUSH Q6H PRN PRN Reason: Pruritis Stop: 08/24/17 23:00 Docusate Sodium (Colace) 100 mg PO BID [facility] Last Admin: 08/25/17 08:47 Dose: 100 mg Ephedrine Sulfate (Ephedrine Sulfate) Confirm Administered Dose 50 mg .ROUTE .STK-MED ONE Stop: 08/24/17 14:57 Famotidine (Pepcid) 20 mg PO Q12H [facility] Last Admin: 08/25/17 08:47 Dose: 20 mg Fentanyl (Sublimaze) Confirm Administered Dose 100 mcg .ROUTE .STK-MED ONE Stop: 08/24/17 14:09 Hydralazine HCl (Apresoline) 20 mg IVPUSH Q4H PRN PRN Reason: Hypertension Hydrochlorothiazide (Hydrochlorothiazide) 25 mg PO ONETIME ONE Stop: 08/24/17 21:46 Last Admin: 08/24/17 22:30 Dose: Not Given Hydrochlorothiazide (Hydrochlorothiazide) 12.5 mg PO ONETIME ONE Stop: 08/24/17 21:46 Last Admin: 08/24/17 22:35 Dose: 12.5 mg Lactated Ringer's (Ringers, Lactated) 1,000 mls @ 125 mls/hr IV ASDIRECTED [facility] Last Admin: 08/24/17 18:40 Dose: 125 mls/hr Cefazolin Sodium/Dextrose 2 gm (/ Premix) 50 mls @ 100 mls/hr IV Q8H [facility] Stop: 08/25/17 13:59 Last Admin: 08/25/17 12:36 Dose: 100 mls/hr Lactated Ringer's (Ringers, Lactated) Confirm Administered Dose 1,000 mls @ as directed .ROUTE .STK-MED ONE Stop: 08/24/17 14:36 Iodine (Iodine 2% Mild Tincture) Confirm Administered Dose 30 ml .ROUTE .STK- MED ONE Stop: 08/24/17 12:09 Last Admin: 08/24/17 14:25 Dose: 18 ml Ketorolac Tromethamine (Toradol) 15 mg IVPUSH Q6H PRN PRN Reason: Pain Last Admin: 08/25/17 05:30 Dose: 15 mg Lidocaine/Sodium Bicarbonate (Buffered Lidocaine 1% In Ns 8.4%) 0.25 ml IV ONETIME ONE Stop: 08/24/17 10:57 Last Admin: 08/24/17 11:44 Dose: 0.25 ml Lisinopril (Prinivil) 20 mg PO DAILY OMAR Last Admin: 08/25/17 08:47 Dose: 20 mg Lisinopril (Prinivil) 10 mg PO ONETIME ONE Stop: 08/25/17 09:01 Last Admin: 08/25/17 08:46 Dose: 10 mg Magnesium Hydroxide (Milk Of Magnesia) 30 ml PO BID PRN PRN Reason: Constipation Meperidine HCl (Demerol) 12.5 mg IVPUSH ONETIME PRN PRN Reason: Shivering Stop: 08/24/17 23:00 Metoprolol Tartrate (Lopressor) 5 mg IVPUSH Q4H PRN PRN Reason: Tachycardia Midazolam HCl (Versed 1 Mg/Ml) Confirm Administered Dose 2 mg .ROUTE .STK-MED ONE Stop: 08/24/17 12:52 Morphine Sulfate (Duramorph Pf) Confirm Administered Dose 10 mg .ROUTE .STK-MED ONE Stop: 08/24/17 12:52 Morphine Sulfate (Morphine) 2 mg IVPUSH Q2H PRN PRN Reason: Breakthrough Pain Naloxone HCl (Narcan) 0.1 mg IVPUSH Q5M PRN PRN Reason: Oversedation Ondansetron HCl (Zofran) 4 mg IVPUSH Q6H PRN PRN Reason: Nausea/Vomiting Ondansetron HCl (Zofran) 4 mg IVPUSH ONETIME PRN PRN Reason: Nausea/Vomiting Stop: 08/24/17 23:00 Ondansetron HCl (Zofran) Confirm Administered Dose 4 mg .ROUTE .STK-MED ONE Stop: 08/24/17 15:32 Oxycodone/Acetaminophen (Percocet 325-5 Mg) 1 - 2 tab PO Q4H PRN PRN Reason: Pain Last Admin: 08/25/17 12:36 Dose: 2 tab Propofol (Diprivan 20 Ml) Confirm Administered Dose 600 mg .ROUTE .STK-MED ONE Stop: 08/24/17 12:51 Propofol (Diprivan 20 Ml) Confirm Administered Dose 200 mg .ROUTE .STK-MED ONE Stop: 08/24/17 14:05 Propofol (Diprivan 20 Ml) Confirm Administered Dose 200 mg .ROUTE .STK-MED ONE Stop: 08/24/17 14:06 Propofol (Diprivan 20 Ml) Confirm Administered Dose 200 mg .ROUTE .STK-MED ONE Stop: 08/24/17 14:37 Propofol (Diprivan 20 Ml) Confirm Administered Dose 200 mg .ROUTE .STK-MED ONE Stop: 08/24/17 14:55 Rosuvastatin Calcium (Crestor) 10 mg PO DAILY OMAR Last Admin: 08/25/17 08:47 Dose: 10 mg Senna (Senna) 8.6 mg PO BID PRN PRN Reason: Constipation Sodium Chloride (Saline Flush) 10 ml FLUSH ASDIRECTED PRN PRN Reason: Keep Vein Open Tranexamic Acid (Cyklokapron) Confirm Administered Dose 1,000 mg .ROUTE .STK- MED ONE Stop: 08/24/17 12:09 Last Admin: 08/24/17 14:43 Dose: 1,000 mg Triamcinolone Acetonide (Kenalog-40) Confirm Administered Dose 80 mg .ROUTE .STK -MED ONE Stop: 08/24/17 12:09 Last Admin: 08/24/17 15:10 Dose: 80 mg Vancomycin HCl (Vancomycin) Confirm Administered Dose 1 gm .ROUTE .STK-MED ONE Stop: 08/24/17 12:09 Last Admin: 08/24/17 14:44 Dose: 1 gm *Q Meaningful Use (DIS) - VTE *Q VTE Criteria *Q: - Stroke *Q Stroke Criteria *Q: - AMI *Q AMI Criteria *Q:
== END 2017-08-25 14:20 | disposition home or self-care (01) | DRG 302 ==
LOC: JD.OB 11:34 → JD.MS 14:33
PROVIDERS: ADMIT Orthopaedic Surgery; ATTEND Orthopaedic Surgery
PROC: 0SRC0J9 Replacement of Right Knee Joint with Synthetic Substitute, Cemented, Open Approach (ICD-10-PCS; principal; 2017-08-24)
PROC: 3E0U33Z Introduction of Anti-inflammatory into Joints, Percutaneous Approach (ICD-10-PCS; 2017-08-24)
PROC: 3E0U3BZ Introduction of Anesthetic Agent into Joints, Percutaneous Approach (ICD-10-PCS; 2017-08-24)
DX: M17.0 Bilateral primary osteoarthritis of knee (principal); I10 Essential (primary) hypertension; E78.5 Hyperlipidemia, unspecified; R73.01 Impaired fasting glucose; Z79.899 Other long term (current) drug therapy
CPT/HCPCS: 01400; 36415; 73560-26-RT; 73560-RT; 80053; 82962; 85027; 94762; 97110-GP; 97116-GP; 97162-GP; 97165-GO; 97535-GO; 99222; A9270-GY; C1713; C1776; J0171; J0690; J0697; J1885; J2250; J2270; J2405; J2704; J3010; J3301; J3370; J3490; J7120

== ENCOUNTER 2017-11-02 09:11 | Inpatient (IN) | payer BC ==
[~2017-11-02 09:11] MED LIST changes: +Bisacodyl 5 MG Tab PO PRN; +Cyclobenzaprine 10 MG Tab PO PRN; +Ketorolac 15 MG/ML SDV IVPUSH PRN; +Lactated Ringers 1,000 ML IV SCH; -Lidocaine 1%/Sod Bicarbonate in NS 8.4% 1 ML Syringe IV ONE; +Lidocaine 1%/Sod Bicarbonate in NS 8.4% 1 ML Syringe IV PRN; +Magnesium Hydroxide 400 MG/5 ML Susp 30 ML Cup PO PRN; +Morphine 2 MG/ML Syringe IVPUSH PRN; -Morphine 8 MG, EPINEPHrine 0.3 MG, Cefuroxime 750 MG, Ketorolac 30 MG, Sodium Chloride ... ONE; +Naloxone 0.4 MG/ML SDV IVPUSH PRN; +Ondansetron 4 MG/2 ML SDV IVPUSH PRN; +Sennosides 8.6 MG Tab PO PRN; +diphenhydrAMINE 50 MG/ML SDV IVPUSH PRN
--- NOTE | 2017-11-02 10:05 | PCM.PREANE ---
Preanesthetic Assessment - Anesthesia/Transfusion/Family Hx Anesthesia History: No Prior Anesthesia Family History of Anesthesia Reaction: No Transfusion History: Unknown Intubation History: Unknown - Review of Systems General: No Symptoms Pulmonary: No Symptoms Cardiovascular: No Symptoms Gastrointestinal: No Symptoms Neurological: No Symptoms Other: Reports: None - Physical Assessment NPO Status Date: 11/02/17 NPO Status Time: 20:00 Pulse: 96 O2 Sat by Pulse Oximetry: 97 Respiratory Rate: 16 Blood Pressure: 163/96 Temperature: 36.6 C Weight: 81.5 kg ASA Class: 2 Mental Status: Alert & Oriented x3 Airway Class: Mallampati = 2 Dentition: Reports: Normal Dentition Thyro-Mental Finger Breadths: 3 Mouth Opening Finger Breadths: 3 ROM/Head Extension: Full Lungs: Clear to Auscultation, Normal Respiratory Effort Cardiovascular: Regular Rate, Regular Rhythm - Lab Values: Laboratory Last Values MRSA (PCR) Negative 10/21/17 13:55 - Imaging/EKG Impressions: Reviewed - Allergies Allergies/Adverse Reactions: Allergies Allergy/AdvReac Type Severity Reaction Status Date / Time No Known Allergies Allergy Verified 08/24/17 12:43 - Acknowledgements Anesthesia Type Planned: Spinal Pt an Appropriate Candidate for the Planned Anesthesia: Yes Alternatives and Risks of Anesthesia Discussed w Pt/Guardian: Yes Pt/Guardian Understands and Agrees with Anesthesia Plan: Yes PreAnesthesia Questionnaire HEENT History: Reports: Sinusitis, Other (See Below) Other HEENT History: wears glasses Cardiovascular History: Reports: High Cholesterol, Hypertension Respiratory History: Reports: None Gastrointestinal History: Reports: None Genitourinary History: Reports: None [employer] History: Reports: None Musculoskeletal History: Reports: Arthritis Other Musculoskeletal History: bilateral knee pain, intercostal muscle pain, olecranon bursitis Neurological History: Reports: None Psychiatric History: Reports: None Endocrine/Metabolic History: Reports: Other (See Below) Other Endocrine/Metabolic History: prediabetic Hematologic History: Reports: None Immunologic History: Reports: None Oncologic (Cancer) History: Reports: None Dermatologic History: Reports: None - Past Surgical History Head Surgeries/Procedures: Reports: None HEENT Surgical History: Reports: Cataract Surgery Cardiovascular Surgical History: Reports: None Respiratory Surgical History: Reports: None GI Surgical History: Reports: None Female Surgical History: Reports: None Endocrine Surgical History: Reports: None Neurological Surgical History: Reports: None Oncologic Surgical History: Reports: None Dermatological Surgical History: Reports: None - SUBSTANCE USE Smoking Status *Q: Never Smoker Tobacco Use Within Last Twelve Months: Snuff/Dip Second Hand Smoke Exposure: No Days Per Week of Alcohol Use: 7 Number of Drinks Per Day: 1 Total Drinks Per Week: 7 Recreational Drug Use History: No - HOME MEDS Home Medications: Home Meds Rosuvastatin [Crestor] 10 mg PO DAILY 05/25/16 [History] Lisinopril 20 mg PO DAILY 08/23/17 [History] Cholecalciferol (Vitamin D3) [Vitamin D3] 1 tab PO DAILY 10/30/17 [History] - CURRENT (IN HOUSE) MEDS Current Meds: Current Medications Aspirin (Ecotrin) 325 mg PO BID OMAR Bisacodyl (Dulcolax) 5 mg PO DAILY PRN PRN Reason: Constipation Cyclobenzaprine HCl (Flexeril) 10 mg PO TID PRN PRN Reason: Spasms Diphenhydramine HCl (Benadryl) 25 mg IVPUSH Q4H PRN PRN Reason: Nausea Docusate Sodium (Colace) 100 mg PO BID OMAR Famotidine (Pepcid) 20 mg PO Q12H [facility] Lactated Ringer's (Ringers, Lactated) 1,000 mls @ 125 mls/hr IV ASDIRECTED [facility] Stop: 11/02/17 18:00 Cefazolin Sodium/Dextrose 2 gm (/ Premix) 50 mls @ 100 mls/hr IV Q8H [facility] Stop: 11/02/17 23:29 Ketorolac Tromethamine (Toradol) 15 mg IVPUSH Q6H PRN PRN Reason: Pain Lidocaine/Sodium Bicarbonate (Buffered Lidocaine 1% In Ns 8.4%) 0.25 ml IV ONETIME PRN PRN Reason: Prior to IV Start Stop: 11/02/17 18:00 Magnesium Hydroxide (Milk Of Magnesia) 30 ml PO BID PRN PRN Reason: Constipation Morphine Sulfate (Morphine) 2 mg IVPUSH Q2H PRN PRN Reason: Breakthrough Pain Naloxone HCl (Narcan) 0.1 mg IVPUSH Q5M PRN PRN Reason: Oversedation Ondansetron HCl (Zofran) 4 mg IVPUSH Q6H PRN PRN Reason: Nausea/Vomiting Oxycodone/Acetaminophen (Percocet 325-5 Mg) 1 - 2 tab PO Q4H PRN PRN Reason: Pain Senna (Senna) 8.6 mg PO BID PRN PRN Reason: Constipation Sodium Chloride (Saline Flush) 10 ml FLUSH ASDIRECTED PRN PRN Reason: Keep Vein Open Stop: 11/02/17 18:00 Discontinued Medications Morphine Sulfate 8 mg/Epinephrine HCl 0.3 mg/Cefuroxime Sodium 750 mg/Ketorolac Tromethamine 30 mg/Sodium Chloride 27.9 ml 0 mg .XX ONETIME ONE Stop: 11/02/17 06:56
[2017-11-02] MEDS ORDERED: Phenylephrine/Normal Saline 100 MCG/ML 10 ML Syringe ONE (10:22)
[2017-11-02] MEDS ORDERED: Lactated Ringers 2,000 ML ONE (10:22)
[2017-11-02] MEDS ORDERED: Propofol 200 MG/20 ML SDV ONE ×3 (10:22→12:24)
[2017-11-02] MEDS ORDERED: Ketamine 500 mg/10 ML MDV ONE (10:22)
[2017-11-02] MEDS ORDERED: Midazolam 1 MG/ML 2 ML SDV ONE (10:22)
[2017-11-02] MEDS ORDERED: Morphine PF 10 MG/10 ML SDV ONE (10:22)
[2017-11-02] MEDS ORDERED: ceFAZolin 1 GM Vial ONE (10:22)
[2017-11-02] MEDS ORDERED: Ondansetron 4 MG/2 ML SDV ONE (10:22)
[2017-11-02] MEDS ORDERED: fentaNYL 100 MCG/2 ML SDV ONE (10:22)
[2017-11-02] MEDS ORDERED: Lidocaine 1% 2 ML ONE (11:01)
[2017-11-02] MEDS ORDERED: Ondansetron 4 MG/2 ML SDV IVPUSH PRN (11:05)
[2017-11-02] MEDS ORDERED: ePHEDrine 50 MG/ML SDV IVPUSH PRN (11:05)
[2017-11-02] MEDS ORDERED: diphenhydrAMINE 50 MG/ML SDV IVPUSH PRN (11:05)
[2017-11-02] MEDS ORDERED: HYDROmorphone 0.5 MG/0.5 ML Syringe IVPUSH PRN (11:05)
[2017-11-02] MEDS ORDERED: fentaNYL 100 MCG/2 ML SDV IVPUSH PRN (11:05)
[2017-11-02] MEDS ORDERED: Phenylephrine 1 MG in Sodium Chloride 0.9% 10 ML IV SCH (11:15)
[2017-11-02] MEDS: ceFAZolin 1 GM Vial ONE ×2 (11:30→12:08)
[2017-11-02] MEDS: Iodine/Sodium Iodide 2% Tincture 30 ML Bottle ONE ×2 (11:30→12:05)
[2017-11-02] MEDS: Morphine 8 MG, EPINEPHrine 0.3 MG, Cefuroxime 750 MG, Ketorolac 30 MG, Sodium Chloride ... ONE ×15 (11:31→20:32)
[2017-11-02] MEDS: Vancomycin 1 GM SDV ONE ×2 (11:32→12:16)
[2017-11-02] MEDS: Bupivacaine 0.25% 30 ML SDV ONE ×2 (11:32→12:14)
--- NOTE | 2017-11-02 13:01 | PCM.POSTAN ---
POST ANESTHESIA ASSESSMENT - MENTAL STATUS Mental Status: Alert - VITAL SIGNS Pulse Rate: 78 SaO2: 99 Resp Rate: 16 Blood Pressure: 102/69 Temperature: 36.7 C - RESPIRATORY Respiratory Status: Respiratory Rate WNL, Airway Patent, O2 Saturation Stable, Supplemental Oxygen - CARDIOVASCULAR CV Status: Pulse Rate WNL, Blood Pressure Stable - GASTROINTESTINAL GI Status: No Symptoms - POST OP HYDRATION Hydration Status: Adequate & Stable
--- NOTE | 2017-11-02 13:56 | CR ---
Left knee: AP and lateral views of the left knee were obtained. Comparison: Prior left knee study of 01/04/16. Knee prosthesis is seen. Components are aligned. Underlying bony structures are intact. Soft tissue air is noted from the surgical procedure. Impression: 1. Satisfactory postoperative radiographic appearance of recently placed left knee prosthesis. Diagnostic code #2
--- NOTE | 2017-11-02 14:39 | PCM.CONS ---
H&P History of Present Illness - General Date of Service: 11/02/17 Admit Problem/Dx: Admission Diagnosis/Problem Admission Diagnosis/Problem Osteoarthritis of knee Source of Information: Patient History Limitations: Reports: No Limitations - History of Present Illness Initial Comments - Free Text/Narative: PT WENT TODAY FOR ELECTIVE LT TKA, WITH NO COMPLICATIONS BEEN CONSULTED BY DR BALDWIN FOR HTN MANAGEMENT. BP BEEN CONTROLLED OPT WITH [facility] AND HE ALSO STRICT TO HIS DIET, HE DENIES ANY CP OR SOB, NO WT GAIN OR TOWNSEND. ALSO PT TAKE CRESTOR FOR HLP. CURRENTLY PT IS STABLE HAVE NO NEW COMPLAINTS Left Knee Pain Score (Numeric/FACES): 0 - Related Data Allergies/Adverse Reactions: Allergies Allergy/AdvReac Type Severity Reaction Status Date / Time No Known Allergies Allergy Verified 08/24/17 12:43 Home Medications: Home Meds Rosuvastatin [Crestor] 10 mg PO DAILY 05/25/16 [History] Lisinopril 20 mg PO DAILY 08/23/17 [History] Cholecalciferol (Vitamin D3) [Vitamin D3] 1 tab PO DAILY 10/30/17 [History] Past Medical History HEENT History: Reports: Sinusitis, Other (See Below) Other HEENT History: wears glasses Cardiovascular History: Reports: High Cholesterol, Hypertension Respiratory History: Reports: None Gastrointestinal History: Reports: None Genitourinary History: Reports: None SURFACE BOSS History: Reports: None Musculoskeletal History: Reports: Arthritis Other Musculoskeletal History: bilateral knee pain, intercostal muscle pain, olecranon bursitis Neurological History: Reports: None Psychiatric History: Reports: None Endocrine/Metabolic History: Reports: Other (See Below) Other Endocrine/Metabolic History: prediabetic Hematologic History: Reports: None Immunologic History: Reports: None Oncologic (Cancer) History: Reports: None Dermatologic History: Reports: None - Past Surgical History Head Surgeries/Procedures: Reports: None HEENT Surgical History: Reports: Cataract Surgery Cardiovascular Surgical History: Reports: None Respiratory Surgical History: Reports: None GI Surgical History: Reports: None Male Surgical History: Reports: None Endocrine Surgical History: Reports: None Neurological Surgical History: Reports: None Musculoskeletal Surgical History: Reports: Knee Replacement Other Musculoskeletal Surgeries/Procedures:: Right knee replacement Oncologic Surgical History: Reports: None Dermatological Surgical History: Reports: None Social & Family History - Family History Family Medical History: Noncontributory - Tobacco Use Smoking Status *Q: Never Smoker Years of Tobacco use: 10 Packs/Tins Daily: 0.1 Second Hand Smoke Exposure: No - Caffeine Use Caffeine Use: Reports: Coffee, Soda Other Caffeine Use: 1 cup/day Caffeine Use Comment: coffee 1/day. soda 3/week - Alcohol Use Days Per Week of Alcohol Use: 7 Number of Drinks Per Day: 1 Total Drinks Per Week: 7 - Recreational Drug Use Recreational Drug Use: No Drug Use in Last 12 Months: No - Living Situation & Occupation Living situation: Reports: Occupation: Employed H&P Review of Systems - Review of Systems: Review Of Systems: See Below General: Reports: No Symptoms HEENT: Reports: No Symptoms Pulmonary: Reports: No Symptoms Cardiovascular: Reports: No Symptoms Gastrointestinal: Reports: No Symptoms Genitourinary: Reports: No Symptoms Musculoskeletal: Reports: No Symptoms Skin: Reports: No Symptoms Psychiatric: Reports: No Symptoms Neurological: Reports: No Symptoms Hematologic/Lymphatic: Reports: No Symptoms Immunologic: Reports: No Symptoms Exam - Exam Exam: See Below - Vital Signs Vital Signs: Last Vital Signs Temp 98.0 F 11/02/17 13:54 Pulse 78 11/02/17 13:01 Resp 18 11/02/17 13:54 BP 124/67 11/02/17 13:54 Pulse Ox 97 11/02/17 13:54 Weight: 193 lb 11.2 oz - Exam General: Alert, Oriented, 4 HEENT: PERRLA, Hearing Intact, Mucosa Moist & [place], Nares Patent, Normal Nasal Septum, Posterior Pharynx Clear, Conjunctiva Clear, EOMI, EACs Clear, TMs Clear Neck: Supple, Trachea Midline, 2 Lungs: Clear to Auscultation, Normal Respiratory Effort Cardiovascular: Regular Rate, Regular Rhythm GI/Abdominal Exam: Normal Bowel Sounds, Soft, Non-Tender, No Organomegaly, No Distention, No Abnormal Bruit, No Mass, Pelvis Stable (Male) Exam: Deferred Rectal (Males) Exam: Deferred Back Exam: Normal Inspection, Full Range of Motion, NT Extremities: Normal Inspection, Normal Range of Motion, Non-Tender, No Pedal Edema, Normal Capillary Refill Skin: Warm, Dry, Intact Neurological: Cranial Nerves Intact, Reflexes Equal Bilateral Neuro Extensive - Mental Status: Alert, Oriented x3, Normal Mood/Affect, Normal Cognition Neuro Extensive - Motor, Sensory, Reflexes: CN II-XII Intact, Normal Gait, Normal Reflexes Psychiatric: Alert, Normal Affect, Normal Mood Consult PN Assessment/Plan Procedures: Procedures ASSAY GLUCOSE BLOOD QUANT (08/14/15) ASSAY OF PREALBUMIN (10/09/17) ASSAY OF SERUM ALBUMIN (10/09/17) CHEST X-RAY 2VW FRONTAL&LATL (07/10/17) COMPLETE CBC W/AUTO DIFF WBC (10/09/17) COMPREHEN METABOLIC PANEL (08/18/16) DXA BONE DENSITY AXIAL (07/15/17) EMERGENCY DEPT VISIT (05/25/16) GLYCOSYLATED HEMOGLOBIN TEST (07/10/17) LIPID PANEL (08/20/16) METABOLIC PANEL TOTAL CA (10/09/17) MR-STAPH DNA AMP PROBE (07/08/17) PROTHROMBIN TIME (10/09/17) THROMBOPLASTIN TIME PARTIAL (10/09/17) X-RAY EXAM KNEE 4 OR MORE (04/20/17) X-RAY EXAM OF SHOULDER (05/25/16) Problem List Initiated/Reviewed/Updated: Yes My Orders Last 24 Hours: My Active Orders 11/03/17 09:00 Cholecalciferol (Vitamin D3) [Vitamin D3] 1,000 units PO DAILY Lisinopril [Prinivil] 20 mg PO DAILY Rosuvastatin [Crestor] 10 mg PO DAILY Plan: POD #0 LT TKA ESS HTN HLP DVT PRO WITH ASA BID PER SURGERY PLAN: -OK TO RESUME HOME MED OF LISINOPRIL AND CRESTOR -F/U H/H PER SURGERY PROTOCOL -PT/OT CONSULT AND DC NEED PER PRIMARY TEAM -PT HAVE NO NEW OTHER COMPLAINTS WILL SIGN OFF, WILL FOLLOW NEEDED THANK YOU FOR YOUR CONSULT Requesting Provider: NICOLASA Date Consult Requested: 11/02/17 Patient History Reviewed: Yes Admission H&P Reviewed: Yes
[2017-11-02] MEDS: ceFAZolin 2 GM in Premix Bag 1 BAG IV SCH (19:01)
[2017-11-02] MEDS: Acetaminophen/oxyCODONE 325-5 MG Tab PO PRN (21:11)
[2017-11-02] MEDS: Famotidine 20 MG Tab PO SCH (21:14)
[2017-11-02] MEDS: Docusate Sodium 100 MG Cap PO SCH (21:19)
[2017-11-03] MEDS: ceFAZolin 2 GM in Premix Bag 1 BAG IV SCH ×2 (02:09→09:45)
[2017-11-03] MEDS: Acetaminophen/oxyCODONE 325-5 MG Tab PO PRN ×4 (02:57→13:45)
[2017-11-03] MEDS ORDERED: Lisinopril 20 MG Tab PO SCH (09:00)
[2017-11-03] MEDS ORDERED: Aspirin 325 MG Tab.EC PO SCH (09:00)
[2017-11-03] MEDS ORDERED: Cholecalciferol (Vitamin D3) 1,000 Unit Tab PO SCH (09:00)
[2017-11-03] MEDS ORDERED: Rosuvastatin 10 MG Tab PO SCH (09:00)
[2017-11-03] MEDS: Docusate Sodium 100 MG Cap PO SCH (09:16)
[2017-11-03] MEDS: Famotidine 20 MG Tab PO SCH (09:16)
[2017-11-03 12:51] VITALS: BP 106/68
--- NOTE | 2017-11-04 11:14 | PCM.SURGPN ---
- General Info Date of Service: 11/03/17 POD#: 1 Functional Status: Reports: Pain Controlled, Tolerating Diet, Ambulating, Urinating, Incentive Spirometry - Review of Systems Musculoskeletal: Reports: Other (The pt and feel the pt is prepared for discharge to home.) - Patient Data Vitals - Most Recent: Last Vital Signs Temp 98.6 F 11/03/17 12:22 Pulse 103 H 11/03/17 12:22 Resp 16 11/03/17 12:22 BP 106/68 11/03/17 12:22 Pulse Ox 92 L 11/03/17 12:22 Weight - Most Recent: 189 lb 3.2 oz I&O - Last 24 Hours: Intake & Output 11/03/17 11/04/17 11/04/17 22:59 06:59 14:59 Intake Total 180 Balance 180 Med Orders - Current: Current Medications Discontinued Medications Aspirin (Ecotrin) 325 mg PO BID [facility] Last Admin: 11/03/17 09:16 Dose: 325 mg Bisacodyl (Dulcolax) 5 mg PO DAILY PRN PRN Reason: Constipation Bupivacaine HCl (Marcaine 0.25%) Confirm Administered Dose 30 ml .ROUTE .STK- MED ONE Stop: 11/02/17 09:52 Last Admin: 11/02/17 12:14 Dose: 30 ml Cefazolin Sodium (Ancef) Confirm Administered Dose 2 gm .ROUTE .STK-MED ONE Stop: 11/02/17 09:52 Last Admin: 11/02/17 12:08 Dose: 2 gm Cefazolin Sodium (Ancef) Confirm Administered Dose 2 gm .ROUTE .STK-MED ONE Stop: 11/02/17 10:23 Cholecalciferol (Vitamin D3) 1,000 units PO DAILY [facility] Last Admin: 11/03/17 09:17 Dose: 1,000 units Morphine Sulfate 8 mg/Epinephrine HCl 0.3 mg/Cefuroxime Sodium 750 mg/Ketorolac Tromethamine 30 mg/Sodium Chloride 27.9 ml 0 mg .XX ONETIME ONE Stop: 11/02/17 06:56 Last Admin: 11/02/17 20:32 Dose: Not Given Cyclobenzaprine HCl (Flexeril) 10 mg PO TID PRN PRN Reason: Spasms Last Admin: 11/03/17 06:39 Dose: 10 mg Diphenhydramine HCl (Benadryl) 25 mg IVPUSH Q4H PRN PRN Reason: Nausea Diphenhydramine HCl (Benadryl) 25 mg IVPUSH Q6H PRN PRN Reason: pruritis Stop: 11/02/17 23:00 Docusate Sodium (Colace) 100 mg PO BID [facility] Last Admin: 11/03/17 09:16 Dose: 100 mg Ephedrine Sulfate (Ephedrine Sulfate) 5 mg IVPUSH ASDIRECTED PRN PRN Reason: Hypotension Stop: 11/02/17 18:00 Famotidine (Pepcid) 20 mg PO Q12H [facility] Last Admin: 11/03/17 09:16 Dose: 20 mg Fentanyl (Sublimaze) Confirm Administered Dose 100 mcg .ROUTE .STK-MED ONE Stop: 11/02/17 10:23 Fentanyl (Sublimaze) 50 mcg IVPUSH Q5M PRN PRN Reason: Pain Stop: 11/02/17 11:06 Hydromorphone HCl (Dilaudid) 0.5 mg IVPUSH Q15M PRN PRN Reason: severe pain Stop: 11/02/17 11:06 Lactated Ringer's (Ringers, Lactated) 1,000 mls @ 125 mls/hr IV ASDIRECTED [facility] Stop: 11/02/17 18:00 Last Admin: 11/02/17 09:50 Dose: 125 mls/hr Cefazolin Sodium/Dextrose 2 gm (/ Premix) 50 mls @ 100 mls/hr IV Q8H [facility] Stop: 11/03/17 10:29 Last Admin: 11/03/17 09:45 Dose: 100 mls/hr Lactated Ringer's (Ringers, Lactated) Confirm Administered Dose 2,000 mls @ as directed .ROUTE .STK-MED ONE Stop: 11/02/17 10:23 Lidocaine HCl (Xylocaine-Mpf 1%) Confirm Administered Dose 10 mls @ as directed .ROUTE .STK-MED ONE Stop: 11/02/17 10:23 Lidocaine HCl (Xylocaine-Mpf 1%) Confirm Administered Dose 2 mls @ as directed .ROUTE .STK-MED ONE Stop: 11/02/17 11:02 Phenylephrine HCl 1 mg/ Sodium (Chloride) 10.1 mls @ 1 mls/sec IV TITRATE [facility] PRN Reason: Protocol Stop: 11/02/17 18:00 Iodine (Iodine 2% Mild Tincture) Confirm Administered Dose 30 ml .ROUTE .STK- MED ONE Stop: 11/02/17 09:52 Last Admin: 11/02/17 12:05 Dose: 18 ml Ketamine HCl (Ketalar) Confirm Administered Dose 500 mg .ROUTE .STK-MED ONE Stop: 11/02/17 10:23 Ketorolac Tromethamine (Toradol) 15 mg IVPUSH Q6H PRN PRN Reason: Pain Last Admin: 11/03/17 09:12 Dose: 15 mg Lidocaine/Sodium Bicarbonate (Buffered Lidocaine 1% In Ns 8.4%) 0.25 ml IV ONETIME PRN PRN Reason: Prior to IV Start Stop: 11/02/17 18:00 Last Admin: 11/02/17 09:50 Dose: 0.25 ml Lisinopril (Prinivil) 20 mg PO DAILY [facility] Last Admin: 11/03/17 09:17 Dose: 20 mg Magnesium Hydroxide (Milk Of Magnesia) 30 ml PO BID PRN PRN Reason: Constipation Midazolam HCl (Versed 1 Mg/Ml) Confirm Administered Dose 2 mg .ROUTE .STK-MED ONE Stop: 11/02/17 10:23 Morphine Sulfate (Morphine) 2 mg IVPUSH Q2H PRN PRN Reason: Breakthrough Pain Morphine Sulfate (Duramorph Pf) Confirm Administered Dose 10 mg .ROUTE .STK-MED ONE Stop: 11/02/17 10:23 Naloxone HCl (Narcan) 0.1 mg IVPUSH Q5M PRN PRN Reason: Oversedation Ondansetron HCl (Zofran) 4 mg IVPUSH Q6H PRN PRN Reason: Nausea/Vomiting Ondansetron HCl (Zofran) Confirm Administered Dose 4 mg .ROUTE .STK-MED ONE Stop: 11/02/17 10:23 Ondansetron HCl (Zofran) 4 mg IVPUSH ONETIME PRN PRN Reason: Nausea/Vomiting Stop: 11/02/17 18:00 Oxycodone/Acetaminophen (Percocet 325-5 Mg) 1 - 2 tab PO Q4H PRN PRN Reason: Pain Last Admin: 11/03/17 13:45 Dose: 2 tab Phenylephrine HCl (Phenylephrine In Ns 100 Mcg/Ml) Confirm Administered Dose 1 mg .ROUTE .STK-MED ONE Stop: 11/02/17 10:23 Propofol (Diprivan 20 Ml) Confirm Administered Dose 400 mg .ROUTE .STK-MED ONE Stop: 11/02/17 10:23 Propofol (Diprivan 20 Ml) Confirm Administered Dose 200 mg .ROUTE .STK-MED ONE Stop: 11/02/17 11:51 Propofol (Diprivan 20 Ml) Confirm Administered Dose 200 mg .ROUTE .STK-MED ONE Stop: 11/02/17 12:25 Rosuvastatin Calcium (Crestor) 10 mg PO DAILY [facility] Last Admin: 11/03/17 09:16 Dose: 10 mg Senna (Senna) 8.6 mg PO BID PRN PRN Reason: Constipation Sodium Chloride (Saline Flush) 10 ml FLUSH ASDIRECTED PRN PRN Reason: Keep Vein Open Stop: 11/02/17 18:00 Tranexamic Acid (Cyklokapron) Confirm Administered Dose 1,000 mg .ROUTE .STK- MED ONE Stop: 11/02/17 09:52 Last Admin: 11/02/17 12:18 Dose: 1,000 mg Vancomycin HCl (Vancomycin) Confirm Administered Dose 1 gm .ROUTE .STK-MED ONE Stop: 11/02/17 09:52 Last Admin: 11/02/17 12:16 Dose: 1 gm - Exam Wound/Incisions: Dressing Dry and Intact General: Alert, Cooperative, No Acute Distress Lungs: Normal Respiratory Effort Extremities: Other (NVS intact for BLE. Thomas's negative for BLE.) - Problem List Review Problem List Initiated/Reviewed/Updated: Yes - My Orders Last 24 Hours: Active Orders 24 hr Category Date Time Status Ready for Discharge [RC] PER UNIT ROUTINE Care 11/03/17 11:56 Active - Assessment Assessment (Free Text/Narrative):: POD#1 - left TKA - Plan Plan (Free Text/Narrative):: 1. Hgb 12.0. 2. 325mg ASA BID. Frequent mobility, TEDs. 3. Outpatient P.T. 4. Discharge to home today. The pt's case was discussed with Dr. Rodriguez.
--- NOTE | 2017-11-04 11:15 | PCM.DCSUM1 ---
Discharge Summary - Hospital Course Brief History: José Luis is a 67 yo male who underwent left TKA with Dr. Rodriguez on 11-02. The procedure was completed under spinal anesthesia. The pt tolerated the procedure well and was admitted to the Medical-Surgical Unit. Medical management was provided by the Hospitalist service. The pt's Hospital course was uneventful. The pt's Hgb on POD#1 was 12.0. On POD#1, 325mg ASA BID was initiated for VTE prophylaxis. SCDs and TEDs were also ordered. A Mepilex dressing was placed at the incision site at the time of surgery and remained clean and dry. The pt participated in P.T. and O.T. and progressed well. The pt was allowed to WBAT. On POD#1, the pt was deemed appropriate to discharge to home with his . - Discharge Data Discharge Date: 11/03/17 Discharge Disposition: Home, Self-Care 01 Condition: Good - Patient Summary/Data Consults: Consultations 11/02/17 06:56 Consult to Physician [CONS] Routine OT Evaluation and Treatment [CONS] Routine 11/02/17 07:00 PT Evaluation and Treatment [CONS] Routine - Patient Instructions Diet: Usual Diet as Tolerated Activity: Apply Ice, As Tolerated Driving: Do Not Drive Showering/Bathing: May Shower Wound/Incision Care: Keep Operative Site/Wound Site Clean and Dry, Do NOT Change Dressing Notify Provider of: Fever, Increased Pain, Swelling and Redness, Drainage Other/Special Instructions: Please get up and moving around every hour while awake. This helps to prevent blood clots. Please take 325mg aspirin twice daily - this also helps to prevent blood clots. The medication is being used for blood clot prevention and not for pain control, so please use the medication twice daily as directed. Please wear the MARIANNA hose during the day and you may remove them at night. Please schedule for P.T. Complete the P.T. exercises and stretches that were instructed in the Hospital. Please use the pain medication and muscle relaxant as needed. The medication may cause drowsiness and/or constipation. You could use a stool softener like docusate sodium or Colace 100mg twice daily and/or a laxative like Miralax daily for constipation. Contact your primary care provider for further instructions if you are constipated. Please schedule an appointment with your primary care provider for 'routine post-op care'. Use the incentive spirometer often. Please place ice to the knee often. Please elevate the limb to decrease swelling. Keep the Mepilex dressing in place until follow-up. Please call [phone] with questions or concerns. - Discharge Plan Prescriptions/Med Rec: Acetaminophen/oxyCODONE [Percocet 325-5 MG] 1 - 2 tab PO Q4H PRN #60 tablet PRN Reason: Pain Aspirin [Ecotrin] 325 mg PO BID #70 tab.ec Cyclobenzaprine [Flexeril] 10 mg PO TID PRN #40 tablet PRN Reason: Spasms Home Medications: Home Meds Rosuvastatin [Crestor] 10 mg PO DAILY 05/25/16 [History] Lisinopril 20 mg PO DAILY 08/23/17 [History] Cholecalciferol (Vitamin D3) [Vitamin D3] 1 tab PO DAILY 10/30/17 [History] Acetaminophen/oxyCODONE [Percocet 325-5 MG] 1 - 2 tab PO Q4H PRN #60 tablet 04/15 [Rx] Aspirin [Ecotrin] 325 mg PO BID #70 tab.ec 11/03/17 [Rx] Bisacodyl [Dulcolax] 5 mg PO DAILY PRN tablet 11/03/17 [Rx] Cyclobenzaprine [Flexeril] 10 mg PO TID PRN #40 tablet 11/03/17 [Rx] Docusate Sodium [Colace] 100 mg PO BID cap 11/03/17 [Rx] Famotidine [Pepcid] 20 mg PO Q12H tablet 11/03/17 [Rx] Magnesium Hydroxide [Milk of Magnesia] 30 ml PO BID PRN cup 11/03/17 [Rx] Sennosides [Senna] 8.6 mg PO BID PRN tablet 11/03/17 [Rx] Patient Handouts: Cyclobenzaprine tablets, Acetaminophen; Oxycodone tablets, Total Knee Replacement, Care After, [id number], Total Knee Replacement, Easy- to-Read, Aspirin, ASA oral tablets, Knee Rehabilitation Guidelines Following Surgery Referrals: Mino Medina PA-C [Physician Health Clinician] - Ericka Hdz PA-C [Physician Health Clinician] - (Please see Ericka Hdz on Thursday11/10/2017 at 10:30 AM and on Thursday11/17/17 at 11:15 AM.) - Patient Data Vitals - Most Recent: Last Vital Signs Temp 98.6 F 11/03/17 12:22 Pulse 103 H 11/03/17 12:22 Resp 16 11/03/17 12:22 BP 106/68 11/03/17 12:22 Pulse Ox 92 L 11/03/17 12:22 Weight - Most Recent: 189 lb 3.2 oz I&O - Last 24 hours: Intake & Output 11/03/17 11/04/17 11/04/17 22:59 06:59 14:59 Intake Total 180 Balance 180 Med Orders - Current: Current Medications Discontinued Medications Aspirin (Ecotrin) 325 mg PO BID [facility] Last Admin: 11/03/17 09:16 Dose: 325 mg Bisacodyl (Dulcolax) 5 mg PO DAILY PRN PRN Reason: Constipation Bupivacaine HCl (Marcaine 0.25%) Confirm Administered Dose 30 ml .ROUTE .STK- MED ONE Stop: 11/02/17 09:52 Last Admin: 11/02/17 12:14 Dose: 30 ml Cefazolin Sodium (Ancef) Confirm Administered Dose 2 gm .ROUTE .STK-MED ONE Stop: 11/02/17 09:52 Last Admin: 11/02/17 12:08 Dose: 2 gm Cefazolin Sodium (Ancef) Confirm Administered Dose 2 gm .ROUTE .STK-MED ONE Stop: 11/02/17 10:23 Cholecalciferol (Vitamin D3) 1,000 units PO DAILY [facility] Last Admin: 11/03/17 09:17 Dose: 1,000 units Morphine Sulfate 8 mg/Epinephrine HCl 0.3 mg/Cefuroxime Sodium 750 mg/Ketorolac Tromethamine 30 mg/Sodium Chloride 27.9 ml 0 mg .XX ONETIME ONE Stop: 11/02/17 06:56 Last Admin: 11/02/17 20:32 Dose: Not Given Cyclobenzaprine HCl (Flexeril) 10 mg PO TID PRN PRN Reason: Spasms Last Admin: 11/03/17 06:39 Dose: 10 mg Diphenhydramine HCl (Benadryl) 25 mg IVPUSH Q4H PRN PRN Reason: Nausea Diphenhydramine HCl (Benadryl) 25 mg IVPUSH Q6H PRN PRN Reason: pruritis Stop: 11/02/17 23:00 Docusate Sodium (Colace) 100 mg PO BID [facility] Last Admin: 11/03/17 09:16 Dose: 100 mg Ephedrine Sulfate (Ephedrine Sulfate) 5 mg IVPUSH ASDIRECTED PRN PRN Reason: Hypotension Stop: 11/02/17 18:00 Famotidine (Pepcid) 20 mg PO Q12H [facility] Last Admin: 11/03/17 09:16 Dose: 20 mg Fentanyl (Sublimaze) Confirm Administered Dose 100 mcg .ROUTE .STK-MED ONE Stop: 11/02/17 10:23 Fentanyl (Sublimaze) 50 mcg IVPUSH Q5M PRN PRN Reason: Pain Stop: 11/02/17 11:06 Hydromorphone HCl (Dilaudid) 0.5 mg IVPUSH Q15M PRN PRN Reason: severe pain Stop: 11/02/17 11:06 Lactated Ringer's (Ringers, Lactated) 1,000 mls @ 125 mls/hr IV ASDIRECTED [facility] Stop: 11/02/17 18:00 Last Admin: 11/02/17 09:50 Dose: 125 mls/hr Cefazolin Sodium/Dextrose 2 gm (/ Premix) 50 mls @ 100 mls/hr IV Q8H [facility] Stop: 11/03/17 10:29 Last Admin: 11/03/17 09:45 Dose: 100 mls/hr Lactated Ringer's (Ringers, Lactated) Confirm Administered Dose 2,000 mls @ as directed .ROUTE .STK-MED ONE Stop: 11/02/17 10:23 Lidocaine HCl (Xylocaine-Mpf 1%) Confirm Administered Dose 10 mls @ as directed .ROUTE .STK-MED ONE Stop: 11/02/17 10:23 Lidocaine HCl (Xylocaine-Mpf 1%) Confirm Administered Dose 2 mls @ as directed .ROUTE .STK-MED ONE Stop: 11/02/17 11:02 Phenylephrine HCl 1 mg/ Sodium (Chloride) 10.1 mls @ 1 mls/sec IV TITRATE [facility] PRN Reason: Protocol Stop: 11/02/17 18:00 Iodine (Iodine 2% Mild Tincture) Confirm Administered Dose 30 ml .ROUTE .STK- MED ONE Stop: 11/02/17 09:52 Last Admin: 11/02/17 12:05 Dose: 18 ml Ketamine HCl (Ketalar) Confirm Administered Dose 500 mg .ROUTE .STK-MED ONE Stop: 11/02/17 10:23 Ketorolac Tromethamine (Toradol) 15 mg IVPUSH Q6H PRN PRN Reason: Pain Last Admin: 11/03/17 09:12 Dose: 15 mg Lidocaine/Sodium Bicarbonate (Buffered Lidocaine 1% In Ns 8.4%) 0.25 ml IV ONETIME PRN PRN Reason: Prior to IV Start Stop: 11/02/17 18:00 Last Admin: 11/02/17 09:50 Dose: 0.25 ml Lisinopril (Prinivil) 20 mg PO DAILY [facility] Last Admin: 11/03/17 09:17 Dose: 20 mg Magnesium Hydroxide (Milk Of Magnesia) 30 ml PO BID PRN PRN Reason: Constipation Midazolam HCl (Versed 1 Mg/Ml) Confirm Administered Dose 2 mg .ROUTE .STK-MED ONE Stop: 11/02/17 10:23 Morphine Sulfate (Morphine) 2 mg IVPUSH Q2H PRN PRN Reason: Breakthrough Pain Morphine Sulfate (Duramorph Pf) Confirm Administered Dose 10 mg .ROUTE .STK-MED ONE Stop: 11/02/17 10:23 Naloxone HCl (Narcan) 0.1 mg IVPUSH Q5M PRN PRN Reason: Oversedation Ondansetron HCl (Zofran) 4 mg IVPUSH Q6H PRN PRN Reason: Nausea/Vomiting Ondansetron HCl (Zofran) Confirm Administered Dose 4 mg .ROUTE .STK-MED ONE Stop: 11/02/17 10:23 Ondansetron HCl (Zofran) 4 mg IVPUSH ONETIME PRN PRN Reason: Nausea/Vomiting Stop: 11/02/17 18:00 Oxycodone/Acetaminophen (Percocet 325-5 Mg) 1 - 2 tab PO Q4H PRN PRN Reason: Pain Last Admin: 11/03/17 13:45 Dose: 2 tab Phenylephrine HCl (Phenylephrine In Ns 100 Mcg/Ml) Confirm Administered Dose 1 mg .ROUTE .STK-MED ONE Stop: 11/02/17 10:23 Propofol (Diprivan 20 Ml) Confirm Administered Dose 400 mg .ROUTE .STK-MED ONE Stop: 11/02/17 10:23 Propofol (Diprivan 20 Ml) Confirm Administered Dose 200 mg .ROUTE .STK-MED ONE Stop: 11/02/17 11:51 Propofol (Diprivan 20 Ml) Confirm Administered Dose 200 mg .ROUTE .STK-MED ONE Stop: 11/02/17 12:25 Rosuvastatin Calcium (Crestor) 10 mg PO DAILY [facility] Last Admin: 11/03/17 09:16 Dose: 10 mg Senna (Senna) 8.6 mg PO BID PRN PRN Reason: Constipation Sodium Chloride (Saline Flush) 10 ml FLUSH ASDIRECTED PRN PRN Reason: Keep Vein Open Stop: 11/02/17 18:00 Tranexamic Acid (Cyklokapron) Confirm Administered Dose 1,000 mg .ROUTE .STK- MED ONE Stop: 11/02/17 09:52 Last Admin: 11/02/17 12:18 Dose: 1,000 mg Vancomycin HCl (Vancomycin) Confirm Administered Dose 1 gm .ROUTE .STK-MED ONE Stop: 11/02/17 09:52 Last Admin: 11/02/17 12:16 Dose: 1 gm *Q Meaningful Use (DIS) - VTE *Q VTE Criteria *Q: - Stroke *Q Stroke Criteria *Q: - AMI *Q AMI Criteria *Q:
--- NOTE | 2017-11-09 12:02 | PCM.OPNOTE ---
- General Post-Op/Procedure Note Date of Surgery/Procedure: 11/02/17 Operative Procedure(s): left total knee arthroplasty Pre Op Diagnosis: left knee osteoarthrosis Post-Op Diagnosis: Same Anesthesia Technique: Local, MAC, Spinal Primary Surgeon: Alan Rodriguez Anesthesia Provider: Carmen Serrano Host/Hostess: Ericka Hdz Host/Hostess: Lawanda Shaw EBDelphine in mLs: 10 Complications: None Condition: Good
--- NOTE | 2017-11-09 13:10 | OR ---
DATE OF OPERATION: 11/02/2017 SURGEON: Alan Rodriguez MD OPERATION PERFORMED: Left total knee arthroplasty. PREOPERATIVE DIAGNOSIS: Left knee osteoarthrosis. POSTOPERATIVE DIAGNOSIS: Left knee osteoarthrosis. ANESTHESIA: Local MAC with spinal. ANESTHESIA PROVIDER: Caremn Serrano CRNA ASSISTANTS: Ericka Hdz PA-C, and Lawanda Shaw LPN ESTIMATED BLOOD LOSS: 10 mL. COMPLICATIONS: None. CONDITION: Stable. IMPLANTS: 1. [place] size 6 PS femur. 2. [place] size 6 Lysite tibial baseplate. 3. Brad size 6, 11-mm PS X3 polyethylene. 4. [place] size 32 x 10 mm patella. DESCRIPTION OF PROCEDURE: The patient was identified in the preop holding area. Proper site was marked and identified by the surgeon. The patient was taken back to the operating theater. After adequate anesthesia, the patient's left lower extremity had a nonsterile tourniquet applied and it was then sterilely prepped and draped in the usual sterile fashion. OR timeout was performed. The patient received 2 g IV Ancef. At this time, left lower extremity was exsanguinated. Tourniquet was insufflated to 300 mmHg. Standard medial parapatellar incision was made. Medial parapatellar arthrotomy was created. Deep fibers of the MCL were raised and anterior fat pad was resected. At this time, attention was turned to the patella. Patella measured 25, it was resected to a 15 for a 32 x 10 mm patella. Drill holes were then drilled and found to be in adequate position. The drill was then drilled in the distal femur and the intramedullary distal femoral cutting guide was then placed. 10 mm was resected off the distal femur and was found to be an adequate resection. Sizing guide was placed. It was found to be a size 6 PS femur that was shown on the implant record at the beginning of this dictation. The drill holes were drilled for the epicondylar axis using Whitesides line and epicondyles as reference. At this time, the 4-in-1 cutting block was placed. An anterior posterior and anterior and posterior chamfer cuts were then completed. The correct size box cut was then placed and the box cut was completed and found to be an adequate resection. Attention was turned to the tibia. The posterior medial lateral retractors were placed. The extramedullary tibial guide was placed. It was placed in the old footprint of the ACL. It was aligned with the center of the ankle and 0 degrees of slope, 9 mm was then resected off the unaffected lateral side. There was found to be an acceptable reduction. At this time, posterior osteophytes were removed along with medial and lateral meniscus. A trial implant was placed with a correct sized tibia that was mentioned at the beginning of the dictation. A size 6, 11- mm PS X3 polyethylene was then placed. The patient's knee was brought through range of motion. The patella was tracking centrally and was stable to varus and valgus stress. Alignment was found to be roughly at 0 degrees. At this time, cement was mixed on the back table. The tibia was stamped and drilled in proper rotation. All cut surfaces were irrigated with pulse lavage irrigation with Ancef and then completely dried. Once this was completed, then the cement was ready. The Lysite tibial baseplate was cemented in place. Next, the size 6 PS femur cemented into place and the size 6, 11-mm PS X3 polyethylene was placed. The patient's knee was brought into full extension. Excess cement was removed. The patella was then cemented in place at this time. Tourniquet was deflated. One liter dilute Betadine solution was irrigated through the knee along with 3 L of pulse lavage irrigation with Ancef. Periarticular injection was then completed. The patient's knee was brought through a range of motion. Once the cement had time to set up and it was found to be stable to varus valgus stress, the patella was tracking centrally with full range of motion. At this time, a #2 barbed suture was used for closure of the medial parapatellar arthrotomy. Topical tranexamic acid was placed. 2-0 Vicryl was used subcutaneously, a running 3-0 Monocryl was used subcuticularly. The patient tolerated the procedure well and was sent to the PACU in stable condition. MARIA ISABEL /[id number] [id number]
== END 2017-11-03 14:50 | disposition home or self-care (01) | DRG 302 ==
LOC: JD.MS 09:11
PROVIDERS: ADMIT Orthopaedic Surgery; ATTEND Orthopaedic Surgery
PROC: 0SRD0J9 Replacement of Left Knee Joint with Synthetic Substitute, Cemented, Open Approach (ICD-10-PCS; principal; 2017-11-02)
DX: M17.12 Unilateral primary osteoarthritis, left knee (principal); R03.0 Elevated blood-pressure reading, without diagnosis of hypertension; E78.5 Hyperlipidemia, unspecified; R73.01 Impaired fasting glucose; R73.03 Prediabetes; Z79.899 Other long term (current) drug therapy; H54.7 Unspecified visual loss; I10 Essential (primary) hypertension; Z96.651 Presence of right artificial knee joint
CPT/HCPCS: 01402; 36415; 73560-26-LT; 73560-LT; 80053; 85027; 87641; 94762; 97110-GP; 97116-GP; 97162-GP; 97165-GO; 97535-GO; 99252; A9270-GY; C1713; C1776; J0171; J0690; J0697; J1885; J2250; J2270; J2405; J2704; J3010; J3370; J3490; J7120